=== PATIENT | male | born 1945 | race African-American/Black ===

== ENCOUNTER 2016-07-22 08:23 | Inpatient (IN) | payer MEDICARE ==
[~2016-07-22] VITALS: Ht 177.8 cm; Wt 62.6 kg
[~2016-07-22 08:23] MED LIST: ALBU18HF2 IH; LEVO500T15 PO; P50 PO
[2016-07-22] MEDS ORDERED: METHYLPREDNISOLONE SOD SUCC 125 MG/2 ML VIAL IV STA (08:51)
[2016-07-22] MEDS ORDERED: ASPIRIN 81MG TABLET PO ONE (09:00)
[2016-07-22] MEDS ORDERED: IPRATROPIUM/ALBUTEROL 0.5-3(2.5)MG/3ML NEB HHN ONE (09:00)
[2016-07-22 09:10] LABS: BG BASE EXCESS -2.9 mmol/L (-2.0-2.0); BG CARBOXYHEMOGLOBIN 2.4 % (0.5-1.5); BG FRACTION INSPIRED OXYGEN 32; BG HCO3 ACT 22.6 mmol/L (22.0-26.0); BG METHEMOGLOBIN 0.3 % (0.0-1.5); BG OXYGEN SATURATION 89.7 % (92.0-98.5); BG OXYHEMOGLOBIN 87.3 % (94.0-97.0); BG PCO2 41.8 mmHg (35.0-45.0); BG PO2 61.1 mmHg (75.0-100.0); BG SAMPLE SITE RIGHT BRACHIAL; BG TOTAL HEMOGLOBIN 14.6 g/dL (12.0-18.0); BG VENT MODE NASAL CANNULA
[2016-07-22 09:10] LABS: BASOPHILS % 1.1 % (0.0-2.0); EOSINOPHILS % 5.4 % (0.0-5.0); HEMATOCRIT. 43.8 % (42.0-52.0); HEMOGLOBIN. 14.3 g/dL (14.0-18.0); LYMPHOCYTES % 26.8 % (20.0-50.0); MEAN CORPUSCULAR HEMOGLOBIN 28.2 pg (28.0-32.0); MEAN CORPUSCULAR VOLUME 86.7 fL (80.0-94.0); MEAN PLATELET VOLUME 8.9 fl (7.4-10.4); MONOCYTES % 7.6 % (2.0-8.0); NEUTROPHILS % 59.1 % (40.0-76.0); PLATELET 230 x1000/uL (130-400); RED BLOOD CELL COUNT 5.05 mill/uL (4.7-6.1); RED CELL DISTRIBUTION WIDTH 13.5 % (11.6-14.6)
[2016-07-22 09:19] LABS: CHLORIDE 107 mEq/L (98-107); PARTIAL THROMBOPLASTIN TIME 27.9 sec (24.0-34.0); PROTHROMBIN TIME 10.3 sec
[2016-07-22 09:28] LABS: CARBON DIOXIDE 31 mEq/L (21-32)
[2016-07-22 09:31] LABS: TROPONIN I 0.02 ng/mL (0.00-0.04)
[2016-07-22] MEDS ORDERED: LIDOCAINE HCL 1% 20ML VIAL (Pyxis) INJ ONE (09:38)
[2016-07-22] MEDS ORDERED: PROPOFOL 200MG/20ML VIAL IV ONE (09:38)
[2016-07-22 11:14] LABS: CLARITY URINE CLEAR (CLEAR); COLOR URINE YELLOW (YELLOW); GLUCOSE URINE NEGATIVE (NEGATIVE); KETONES URINE NEGATIVE (NEGATIVE); LEUKOCYTE ESTERASE URINE 1+ (NEGATIVE); NITRITE URINE NEGATIVE (NEGATIVE); OCCULT BLOOD URINE NEGATIVE (NEGATIVE); PH URINE 5.5 (4.5-8.0); PROTEIN URINE NEGATIVE (NEGATIVE); SPECIFIC GRAVITY URINE 1.024 (1.005-1.030); UROBILINOGEN URINE 0.2 E.U./dL (0.2-1.0)
[2016-07-22 12:22] VITALS: BP 134/83
[2016-07-22] MEDS ORDERED: ONDANSETRON HCL 4MG/2ML VIAL IV PRN (14:15)
[2016-07-22] MEDS ORDERED: MAGNESIUM/ALUMINUM HYDROXIDE/SIMETHICONE 30ML UDC PO PRN (14:15)
[2016-07-22] MEDS ORDERED: ACETAMINOPHEN 325MG TABLET PO PRN (14:15)
[2016-07-22] MEDS ORDERED: ACETAMINOPHEN 650MG SUPP PR PRN (14:15)
[2016-07-22] MEDS ORDERED: DIPHENHYDRAMINE 50MG/ML VIAL IV PRN (14:15)
[2016-07-22] MEDS ORDERED: ACETAMINOPHEN 650MG/20.3ML UDC GT PRN (14:15)
[2016-07-22] MEDS ORDERED: NA PHOS,M-B/NA PHOS,DI-BA ENEMA 118ML PR PRN (14:15)
[2016-07-22] MEDS ORDERED: DOCUSATE SODIUM 100MG CAPSULE PO PRN (14:15)
[2016-07-22] MEDS ORDERED: GUAIFENESIN 200MG/10ML SUGAR FREE UDC PO PRN (14:15)
[2016-07-22] MEDS ORDERED: HYDROCODONE/ACETAMINOPHEN 5/325MG TABLET PO PRN (14:15)
[2016-07-22] MEDS ORDERED: IPRATROPIUM/ALBUTEROL 0.5-3(2.5)MG/3ML NEB INH PRN (14:15)
[2016-07-22] MEDS ORDERED: CLONIDINE 0.1MG TABLET PO PRN (14:15)
[2016-07-22 16:00] VITALS: BP 125/76
[2016-07-22] MEDS: IPRATROPIUM/ALBUTEROL 0.5-3(2.5)MG/3ML NEB INH SCH ×2 (16:07→20:30)
[2016-07-22] MEDS: METHYLPREDNISOLONE SOD SUCC 125 MG/2 ML VIAL IV SCH (18:39)
[2016-07-22 20:00] VITALS: BP 121/103
[2016-07-22] MEDS: BUDESONIDE 0.5MG/2ML NEB HHN SCH (20:30)
[2016-07-22] MEDS: SODIUM CHLORIDE 0.9% INJ 3ML FLUSH IVF SCH (21:15)
[2016-07-22 21:51] LABS: *AMPHETAMINES SCREEN URINE NEGATIVE (NEGATIVE); *BARBITURATES SCREEN URINE NEGATIVE (NEGATIVE); *BENZODIAZEPINES SCREEN URINE NEGATIVE (NEGATIVE); *COCAINE SCREEN URINE PRESUMTIVE POSITIVE (NEGATIVE); CANNABINOID URINE SCREEN NEGATIVE (NEGATIVE); METHADONE URINE SCREEN NEGATIVE (NEGATIVE); OPIATES URINE SCREEN NEGATIVE (NEGATIVE); PHENCYCLIDINE URINE SCREEN NEGATIVE (NEGATIVE)
[2016-07-22] MEDS: SODIUM CHLORIDE 0.9% 1,000 ML IV SCH (23:59)
[2016-07-23] VITALS: BP 107/73
[2016-07-23] MEDS: CEFTRIAXONE 1 G PREMIX 50 ML IV SCH (01:08)
[2016-07-23] MEDS: IPRATROPIUM/ALBUTEROL 0.5-3(2.5)MG/3ML NEB INH SCH ×4 (02:11→20:46)
[2016-07-23 04:00] VITALS: BP 106/60
[2016-07-23] MEDS: SODIUM CHLORIDE 0.9% INJ 3ML FLUSH IVF SCH ×3 (05:22→21:53)
[2016-07-23] MEDS: METHYLPREDNISOLONE SOD SUCC 125 MG/2 ML VIAL IV SCH ×4 (05:22→18:51)
[2016-07-23 07:03] LABS: HEMATOCRIT. 39.5 % (42.0-52.0); HEMOGLOBIN. 12.9 g/dL (14.0-18.0); MEAN CORPUSCULAR HEMOGLOBIN 28.3 pg (28.0-32.0); MEAN CORPUSCULAR VOLUME 86.5 fL (80.0-94.0); MEAN PLATELET VOLUME 9.7 fl (7.4-10.4); PLATELET 205 x1000/uL (130-400); RED BLOOD CELL COUNT 4.57 mill/uL (4.7-6.1)
[2016-07-23 07:35] LABS: CARBON DIOXIDE 25 mEq/L (21-32); CHLORIDE 105 mEq/L (98-107); HDL CHOLESTEROL 73 mg/dL (40-59); LDL CHOLESTEROL 73 mg/dL (5-100)
[2016-07-23 08:00] VITALS: BP 118/73
[2016-07-23] MEDS: BUDESONIDE 0.5MG/2ML NEB HHN SCH ×2 (08:58→20:45)
[2016-07-23 12:00] VITALS: BP 112/62
[2016-07-23 13:47] LABS: PLATELET ESTIMATE NORMAL
[2016-07-23 16:00] VITALS: BP 125/72
[2016-07-23] MEDS: SODIUM CHLORIDE 0.9% 1,000 ML IV SCH (16:03)
[2016-07-23 20:00] VITALS: BP 132/71
[2016-07-24] VITALS: BP 126/70
[2016-07-24] MEDS: CEFTRIAXONE 1 G PREMIX 50 ML IV SCH (00:16)
[2016-07-24] MEDS: METHYLPREDNISOLONE SOD SUCC 125 MG/2 ML VIAL IV SCH ×2 (00:16→05:47)
[2016-07-24] MEDS: IPRATROPIUM/ALBUTEROL 0.5-3(2.5)MG/3ML NEB INH SCH ×2 (01:25→09:06)
[2016-07-24 04:00] VITALS: BP 122/82
[2016-07-24] MEDS: SODIUM CHLORIDE 0.9% INJ 3ML FLUSH IVF SCH (05:47)
[2016-07-24 08:00] VITALS: BP 119/77
[2016-07-24] MEDS: BUDESONIDE 0.5MG/2ML NEB HHN SCH (09:06)
[2016-07-24] MEDS: SODIUM CHLORIDE 0.9% 1,000 ML IV SCH (09:38)
[2016-07-24 12:00] VITALS: BP 117/83
[2016-07-24 13:09] VITALS: BP 117/83
== END 2016-07-24 13:10 | disposition home or self-care (01) | DRG 682 ==
LOC: ER 08:24 → 5WST 11:04 → EDBEDREQ 11:16 → ENRESERV 11:22
PROVIDERS: ADMIT Family Medicine; ATTEND Family Medicine
DX: N17.9 Acute kidney failure, unspecified (principal); J96.01 Acute respiratory failure with hypoxia; J44.1 Chronic obstructive pulmonary disease with (acute) exacerbation; N39.0 Urinary tract infection, site not specified; F14.90 Cocaine use, unspecified, uncomplicated; F17.210 Nicotine dependence, cigarettes, uncomplicated
CPT/HCPCS: 36415; 36600; 71010; 80053; 80061; 80305; 81001; 82375; 82805; 83880; 84484; 85025; 85610; 85730; 93005; 93970; 94640; 94664; 96374; 99285; J0696; J2704; J2930; J3490; J7030; J7620; J7626

== ENCOUNTER 2016-10-07 12:49 | Inpatient (IN) | payer MEDICARE ==
[~2016-10-07] VITALS: Ht 172.7 cm; Wt 56.3 kg
[~2016-10-07 12:49] MED LIST changes: -LEVO500T15 PO; +LEVO500T2 PO
[2016-10-07] MEDS ORDERED: MAGNESIUM 2 G PREMIX 50 ML IV STA (13:09)
[2016-10-07] MEDS ORDERED: METHYLPREDNISOLONE SOD SUCC 125 MG/2 ML VIAL IV STA (13:09)
[2016-10-07] MEDS ORDERED: ALBUTEROL (0.083%) 2.5MG/3ML NEB HHN STA (13:09)
[2016-10-07] MEDS ORDERED: IPRATROPIUM BROMIDE (0.02%) 0.5MG/2.5ML NEB HHN STA (13:09)
[2016-10-07 14:09] LABS: BASOPHILS % 0.8 % (0.0-2.0); EOSINOPHILS % 2.2 % (0.0-5.0); HEMATOCRIT. 44.5 % (42.0-52.0); HEMOGLOBIN. 14.4 g/dL (14.0-18.0); LYMPHOCYTES % 25.1 % (20.0-50.0); MEAN CORPUSCULAR HEMOGLOBIN 28.5 pg (28.0-32.0); MEAN CORPUSCULAR VOLUME 87.7 fL (80.0-94.0); MEAN PLATELET VOLUME 9.3 fl (7.4-10.4); MONOCYTES % 9.1 % (2.0-8.0); NEUTROPHILS % 62.8 % (40.0-76.0); PLATELET 248 x1000/uL (130-400); RED BLOOD CELL COUNT 5.07 mill/uL (4.7-6.1); RED CELL DISTRIBUTION WIDTH 13.4 % (11.6-14.6)
[2016-10-07 14:11] LABS: PARTIAL THROMBOPLASTIN TIME 29.2 sec (23.4-31.0); PROTHROMBIN TIME 10.8 sec (9.4-11.6)
[2016-10-07 14:19] LABS: CARBON DIOXIDE 27 mEq/L (21-32); CHLORIDE 105 mEq/L (98-107); TROPONIN I < 0.02 ng/mL (0.00-0.04)
[2016-10-07] MEDS ORDERED: FUROSEMIDE 20MG/2ML VIAL IVP ONE (15:00)
[2016-10-07] MEDS ORDERED: LEVOFLOXACIN 500MG PREMIX 100 ML IV SCH (15:15)
[2016-10-07] MEDS ORDERED: ONDANSETRON HCL 4MG/2ML VIAL IV PRN (15:15)
[2016-10-07] MEDS ORDERED: ACETAMINOPHEN 325MG TABLET PO PRN (15:15)
[2016-10-07] MEDS ORDERED: METHYLPREDNISOLONE SOD SUCC 40 MG/ML VIAL IV SCH (15:15)
[2016-10-07] MEDS ORDERED: LEVOFLOXACIN 500MG PREMIX 100 ML IV NR (16:50)
[2016-10-07] MEDS ORDERED: TEMAZEPAM 15MG CAPSULE PO PRN (21:00)
[2016-10-07 21:14] LABS: CLARITY URINE CLEAR (CLEAR); COLOR URINE YELLOW (YELLOW); GLUCOSE URINE NEGATIVE (NEGATIVE); KETONES URINE NEGATIVE (NEGATIVE); LEUKOCYTE ESTERASE URINE NEGATIVE (NEGATIVE); NITRITE URINE NEGATIVE (NEGATIVE); OCCULT BLOOD URINE NEGATIVE (NEGATIVE); PROTEIN URINE 1+ (NEGATIVE); SPECIFIC GRAVITY URINE 1.027 (1.005-1.030)
[2016-10-07 21:30] VITALS: BP 119/64
[2016-10-07 22:00] VITALS: BP 119/64
[2016-10-07] MEDS ORDERED: PNEUMOCOCCAL 23-VAL P-SAC VAC 0.5 ML IM ONE (22:30)
[2016-10-07] MEDS: METHYLPREDNISOLONE SOD SUCC 40 MG/ML VIAL IV SCH (22:50)
[2016-10-07 23:27] LABS: CREATINE KINASE MB FRACTION 3.3 ng/mL (0.5-3.6); TROPONIN I < 0.02 ng/mL (0.00-0.04)
[2016-10-08] MEDS ORDERED: DEXTROSE 50% WATER 50ML SYRINGE IV PRN (02:00)
[2016-10-08] MEDS ORDERED: PNEUMOCOCCAL 23-VAL P-SAC VAC 0.5 ML IM ONE (06:00)
[2016-10-08] MEDS: BLOOD SUGAR DIAGNOSTIC STRIP TEST SCH ×4 (06:10→20:31)
[2016-10-08 06:15] LABS: BASOPHILS % 0.3 % (0.0-2.0); HEMATOCRIT. 38.8 % (42.0-52.0); HEMOGLOBIN. 12.7 g/dL (14.0-18.0); LYMPHOCYTES % 10.3 % (20.0-50.0); MEAN CORPUSCULAR HEMOGLOBIN 28.4 pg (28.0-32.0); MEAN CORPUSCULAR VOLUME 86.9 fL (80.0-94.0); MEAN PLATELET VOLUME 9.3 fl (7.4-10.4); MONOCYTES % 4.4 % (2.0-8.0); PLATELET 205 x1000/uL (130-400); RED BLOOD CELL COUNT 4.47 mill/uL (4.7-6.1); RED CELL DISTRIBUTION WIDTH 13.2 % (11.6-14.6)
[2016-10-08 06:34] LABS: CARBON DIOXIDE 27 mEq/L (21-32); CHLORIDE 107 mEq/L (98-107); CREATINE KINASE MB FRACTION 3.2 ng/mL (0.5-3.6); TROPONIN I < 0.02 ng/mL (0.00-0.04)
[2016-10-08] MEDS: METHYLPREDNISOLONE SOD SUCC 40 MG/ML VIAL IV SCH ×3 (06:39→21:56)
[2016-10-08] MEDS: INSULIN LISPRO 100 UNITS/ML SUBCUT SCH ×4 (06:52→20:31)
[2016-10-08 08:00] VITALS: BP 128/67
[2016-10-08 08:15] LABS: BG BASE EXCESS -1.4 mmol/L (-2.0-2.0); BG CARBOXYHEMOGLOBIN 1.6 % (0.5-1.5); BG DEOXYHEMOGLOBIN 4.2 % (0.0-5.0); BG FRACTION INSPIRED OXYGEN 28; BG HCO3 ACT 24.5 mmol/L (22.0-26.0); BG METHEMOGLOBIN 0.1 % (0.0-1.5); BG OXYGEN SATURATION 95.7 % (92.0-98.5); BG OXYHEMOGLOBIN 94.1 % (94.0-97.0); BG PCO2 45.8 mmHg (35.0-45.0); BG PH 7.347 (7.350-7.450); BG PO2 80.1 mmHg (75.0-100.0); BG SAMPLE SITE RIGHT BRACHIAL; BG TOTAL HEMOGLOBIN 13.9 g/dL (12.0-18.0); BG VENT MODE NASAL CANNULA
[2016-10-08] MEDS: PANTOPRAZOLE SODIUM 40 MG/VIAL IV SCH (09:34)
[2016-10-08] MEDS ORDERED: IPRATROPIUM/ALBUTEROL 0.5-3(2.5)MG/3ML NEB HHN PRN (09:45)
[2016-10-08] MEDS: IPRATROPIUM/ALBUTEROL 0.5-3(2.5)MG/3ML NEB HHN SCH ×4 (10:35→20:23)
[2016-10-08 12:00] VITALS: BP 96/60
[2016-10-08] MEDS: NICOTINE 14MG PATCH TD SCH (12:15)
[2016-10-08 13:38] LABS: *AMPHETAMINES SCREEN URINE NEGATIVE (NEGATIVE); *BARBITURATES SCREEN URINE NEGATIVE (NEGATIVE); *BENZODIAZEPINES SCREEN URINE NEGATIVE (NEGATIVE); *COCAINE SCREEN URINE PRESUMTIVE POSITIVE (NEGATIVE); CANNABINOID URINE SCREEN PRESUMTIVE POSITIVE (NEGATIVE); METHADONE URINE SCREEN NEGATIVE (NEGATIVE); OPIATES URINE SCREEN NEGATIVE (NEGATIVE); PHENCYCLIDINE URINE SCREEN NEGATIVE (NEGATIVE)
[2016-10-08] MEDS: AZITHROMYCIN 250 MG TABLET PO SCH (14:25)
[2016-10-08 16:00] VITALS: BP 130/75
[2016-10-08] MEDS: MONTELUKAST SODIUM 10MG TABLET PO SCH (17:56)
[2016-10-08] MEDS: ENOXAPARIN 40MG/0.4ML SYR SUBCUT SCH (17:56)
[2016-10-08] MEDS: LEVOFLOXACIN 250MG PREMIX 50 ML IV SCH (17:57)
[2016-10-08 20:00] VITALS: BP 106/61
[2016-10-09] VITALS: BP 121/73
[2016-10-09] MEDS: IPRATROPIUM/ALBUTEROL 0.5-3(2.5)MG/3ML NEB HHN SCH ×6 (00:31→20:53)
[2016-10-09 04:00] VITALS: BP 121/70
[2016-10-09] MEDS: METHYLPREDNISOLONE SOD SUCC 40 MG/ML VIAL IV SCH ×3 (05:06→21:41)
[2016-10-09] MEDS: BLOOD SUGAR DIAGNOSTIC STRIP TEST SCH ×4 (06:16→21:00)
[2016-10-09] MEDS: INSULIN LISPRO 100 UNITS/ML SUBCUT SCH ×4 (06:16→21:00)
[2016-10-09 08:00] VITALS: BP 108/57
[2016-10-09] MEDS: PANTOPRAZOLE SODIUM 40 MG/VIAL IV SCH (08:51)
[2016-10-09] MEDS: AZITHROMYCIN 250 MG TABLET PO SCH (08:51)
[2016-10-09] MEDS: NICOTINE 14MG PATCH TD SCH (08:52)
[2016-10-09] MEDS: ENOXAPARIN 40MG/0.4ML SYR SUBCUT SCH (08:52)
[2016-10-09 12:00] VITALS: BP 118/71
[2016-10-09 16:00] VITALS: BP 125/78
[2016-10-09] MEDS: MONTELUKAST SODIUM 10MG TABLET PO SCH (18:47)
[2016-10-09] MEDS: LEVOFLOXACIN 250MG PREMIX 50 ML IV SCH (18:47)
[2016-10-09 20:00] VITALS: BP 123/65
[2016-10-10] VITALS: BP 117/69
[2016-10-10] MEDS: IPRATROPIUM/ALBUTEROL 0.5-3(2.5)MG/3ML NEB HHN SCH ×6 (00:22→21:23)
[2016-10-10 04:00] VITALS: BP 139/82
[2016-10-10] MEDS: METHYLPREDNISOLONE SOD SUCC 40 MG/ML VIAL IV SCH (05:09)
[2016-10-10] MEDS: BLOOD SUGAR DIAGNOSTIC STRIP TEST SCH ×4 (05:54→20:17)
[2016-10-10] MEDS: INSULIN LISPRO 100 UNITS/ML SUBCUT SCH ×4 (06:19→20:17)
[2016-10-10 06:56] LABS: HEMATOCRIT. 39.4 % (42.0-52.0); HEMOGLOBIN. 12.9 g/dL (14.0-18.0); MEAN CORPUSCULAR HEMOGLOBIN 28.4 pg (28.0-32.0); MEAN CORPUSCULAR VOLUME 86.6 fL (80.0-94.0); MEAN PLATELET VOLUME 10.7 fl (7.4-10.4); PLATELET 216 x1000/uL (130-400); RED BLOOD CELL COUNT 4.55 mill/uL (4.7-6.1); RED CELL DISTRIBUTION WIDTH 13.4 % (11.6-14.6)
[2016-10-10 08:00] VITALS: BP 130/79
[2016-10-10] MEDS: AZITHROMYCIN 250 MG TABLET PO SCH (09:03)
[2016-10-10] MEDS: PANTOPRAZOLE SODIUM 40 MG/VIAL IV SCH (09:03)
[2016-10-10] MEDS: NICOTINE 14MG PATCH TD SCH (09:04)
[2016-10-10] MEDS: ENOXAPARIN 40MG/0.4ML SYR SUBCUT SCH (09:04)
[2016-10-10 14:00] LABS: PLATELET ESTIMATE NORMAL
[2016-10-10 16:28] VITALS: BP 110/65
[2016-10-10] MEDS: PREDNISONE 20MG TABLET PO SCH (17:53)
[2016-10-10] MEDS: MONTELUKAST SODIUM 10MG TABLET PO SCH (17:53)
[2016-10-10] MEDS: LEVOFLOXACIN 250MG PREMIX 50 ML IV SCH (17:55)
[2016-10-10 20:00] VITALS: BP 160/46
[2016-10-10] MEDS: BUDESONIDE 0.5MG/2ML NEB HHN SCH (21:23)
[2016-10-11] VITALS: BP 110/61
[2016-10-11] MEDS: IPRATROPIUM/ALBUTEROL 0.5-3(2.5)MG/3ML NEB HHN SCH ×4 (00:52→12:32)
[2016-10-11 04:00] VITALS: BP 114/69
[2016-10-11] MEDS: INSULIN LISPRO 100 UNITS/ML SUBCUT SCH ×2 (06:22→12:14)
[2016-10-11] MEDS: BLOOD SUGAR DIAGNOSTIC STRIP TEST SCH ×2 (06:22→11:45)
[2016-10-11 07:30] LABS: HEMOGLOBIN. 12.8 g/dL (14.0-18.0); MEAN CORPUSCULAR HEMOGLOBIN 28.3 pg (28.0-32.0); MEAN CORPUSCULAR VOLUME 86.2 fL (80.0-94.0); MEAN PLATELET VOLUME 9.8 fl (7.4-10.4); PLATELET 208 x1000/uL (130-400); RED BLOOD CELL COUNT 4.53 mill/uL (4.7-6.1); RED CELL DISTRIBUTION WIDTH 13.5 % (11.6-14.6)
[2016-10-11] MEDS: PANTOPRAZOLE SODIUM 40 MG/VIAL IV SCH (08:45)
[2016-10-11] MEDS: NICOTINE 14MG PATCH TD SCH (08:45)
[2016-10-11] MEDS: AZITHROMYCIN 250 MG TABLET PO SCH (08:45)
[2016-10-11] MEDS: PREDNISONE 20MG TABLET PO SCH (08:45)
[2016-10-11 08:47] VITALS: BP 108/61
[2016-10-11] MEDS: ENOXAPARIN 40MG/0.4ML SYR SUBCUT SCH (08:47)
[2016-10-11] MEDS: BUDESONIDE 0.5MG/2ML NEB HHN SCH (09:10)
[2016-10-11] MEDS ORDERED: LEVO500T2 PO (10:40)
[2016-10-11 10:59] VITALS: BP 108/61
[2016-10-11 12:00] VITALS: BP 122/77
[2016-10-11] MEDS ORDERED: ALBUTEROL 6.7GM HFA INHALER INH SCH (14:30)
[2016-10-11 16:53] LABS: PLATELET ESTIMATE NORMAL
[2016-10-12] MEDS ORDERED: PANTOPRAZOLE 40MG DR TABLET PO SCH (06:45)
[2016-10-12] MEDS ORDERED: LEVOFLOXACIN 500MG TABLET PO SCH (09:00)
[2016-10-12] MEDS ORDERED: PREDNISONE 20MG TABLET PO SCH (09:00)
[2016-10-12] MEDS ORDERED: PREDNISONE 50 MG PO SCH (09:00)
== END 2016-10-11 14:50 | disposition home or self-care (01) | DRG 291 ==
LOC: ER 12:53 → 5WST 14:49 → EDBEDREQ 14:51 → ENRESERV 19:58
PROVIDERS: ADMIT Internal Medicine Geriatric Medicine; ATTEND Internal Medicine Geriatric Medicine
DX: I13.0 Hypertensive heart and chronic kidney disease with heart failure and stage 1 through stage 4 chronic kidney disease, or unspecified chronic kidney disease (principal); I50.31 Acute diastolic (congestive) heart failure; J96.00 Acute respiratory failure, unspecified whether with hypoxia or hypercapnia; N17.0 Acute kidney failure with tubular necrosis; J44.1 Chronic obstructive pulmonary disease with (acute) exacerbation; J98.11 Atelectasis; E11.22 Type 2 diabetes mellitus with diabetic chronic kidney disease; E11.65 Type 2 diabetes mellitus with hyperglycemia; N18.9 Chronic kidney disease, unspecified; F14.10 Cocaine abuse, uncomplicated; F17.210 Nicotine dependence, cigarettes, uncomplicated; I35.1 Nonrheumatic aortic (valve) insufficiency; F12.10 Cannabis abuse, uncomplicated; M79.604 Pain in right leg; M79.605 Pain in left leg; Z79.2 Long term (current) use of antibiotics; Z79.51 Long term (current) use of inhaled steroids; Z79.899 Other long term (current) drug therapy; Z71.6 Tobacco abuse counseling
CPT/HCPCS: 36415; 36600; 71010; 80048; 80053; 80305; 81001; 82270; 82375; 82553; 82805; 82962; 83605; 83690; 83880; 84484; 85025; 85610; 85730; 87040; 87086; 90732; 93005; 93306; 93970; 94640; 94664; 96365; 96367; 96375; 99291; C9113; J1650; J1940; J1956; J2920; J2930; J3475; J7030; J7060; J7512; J7611; J7620; J7626

== ENCOUNTER 2019-02-03 13:53 | Inpatient (IN) | payer MEDICARE, OTHER ==
[~2019-02-03] VITALS: Ht 172.7 cm; Wt 60.3 kg
[~2019-02-03 13:53] MED LIST changes: +ATROV IH; +BUDE6.9H INH; +FURO20TA4 MT; -LEVO500T2 PO; +P20 MT; -P50 PO
[2019-02-03] MEDS ORDERED: SODIUM CHLORIDE 0.9% 1,000 ML IV ONE (14:17)
[2019-02-03] MEDS ORDERED: ALBUTEROL (0.083%) 2.5MG/3ML NEB HHN STA (14:17)
[2019-02-03] MEDS ORDERED: METHYLPREDNISOLONE SOD SUCC 125 MG/2 ML VIAL IV STA (14:17)
[2019-02-03] MEDS ORDERED: IPRATROPIUM BROMIDE (0.02%) 0.5MG/2.5ML NEB HHN STA (14:17)
[2019-02-03 14:40] LABS: HEMOGLOBIN. 12.1 g/dL (14.0-18.0); MEAN CORPUSCULAR HEMOGLOBIN 29.3 pg (28.0-32.0); MEAN CORPUSCULAR VOLUME 91.9 fL (80.0-94.0); MEAN PLATELET VOLUME 9.3 fl (7.4-10.4); PLATELET 175 x1000/uL (130-400); RED BLOOD CELL COUNT 4.13 mill/uL (4.7-6.1); RED CELL DISTRIBUTION WIDTH 15.8 % (11.6-14.6)
[2019-02-03 14:46] LABS: CHLORIDE 105 mEq/L (98-107)
[2019-02-03 14:51] LABS: ETHANOL BLOOD < 10 mg/dL
[2019-02-03 14:58] LABS: PLATELET ESTIMATE NORMAL
[2019-02-03 15:44] LABS: BG BASE EXCESS 6.6 mmol/L (-2.0-2.0); BG CARBOXYHEMOGLOBIN 1.3 % (0.5-1.5); BG DEOXYHEMOGLOBIN 4.9 % (0.0-5.0); BG FRACTION INSPIRED OXYGEN 28; BG HCO3 ACT 33.5 mmol/L (22.0-26.0); BG METHEMOGLOBIN 0.1 % (0.0-1.5); BG OXYHEMOGLOBIN 93.7 % (94.0-97.0); BG PCO2 59.3 mmHg (35.0-45.0); BG PO2 73.6 mmHg (75.0-100.0); BG SAMPLE SITE RIGHT RADIAL; BG VENT MODE NASAL CANNULA
[2019-02-03 17:10] LABS: *AMPHETAMINES SCREEN URINE NEGATIVE (NEGATIVE); *BARBITURATES SCREEN URINE NEGATIVE (NEGATIVE); *BENZODIAZEPINES SCREEN URINE NEGATIVE (NEGATIVE); *COCAINE SCREEN URINE NEGATIVE (NEGATIVE); METHADONE URINE SCREEN NEGATIVE (NEGATIVE); OPIATES URINE SCREEN NEGATIVE (NEGATIVE)
[2019-02-03 17:11] LABS: CANNABINOID URINE SCREEN NEGATIVE (NEGATIVE); PHENCYCLIDINE URINE SCREEN NEGATIVE (NEGATIVE)
[2019-02-03] MEDS ORDERED: ACETAMINOPHEN 325MG TABLET PO PRN (17:45)
[2019-02-03] MEDS ORDERED: ONDANSETRON HCL 4MG/2ML INJ IV PRN (17:45)
[2019-02-03] MEDS ORDERED: CALCIUM CHLORIDE 1,000 MG in DEXT 5% WATER 90 ML IV ONE (17:45)
[2019-02-03] MEDS ORDERED: SODIUM POLYSTYRENE SULFONATE 15 G/60 ML BOT PO ONE (17:45)
[2019-02-03] MEDS ORDERED: GUAIFENESIN 200MG/10ML SUGAR FREE UDC PO PRN (17:45)
[2019-02-03] MEDS ORDERED: METHYLPREDNISOLONE SOD SUCC 125 MG/2 ML VIAL IV SCH (18:30)
[2019-02-03] MEDS ORDERED: DOXYCYCLINE 100 MG in DEXT 5% WATER 100 ML IV SCH (19:00)
[2019-02-03] MEDS ORDERED: IPRATROPIUM/ALBUTEROL 0.5-3(2.5)MG/3ML NEB NEB SCH (20:00)
[2019-02-03] MEDS: METHYLPREDNISOLONE SOD SUCC 125 MG/2 ML VIAL IV SCH (20:03)
[2019-02-03 21:18] VITALS: BP 111/67
[2019-02-03] MEDS: HEPARIN 5000 UNITS/ML VIAL SUBCUT SCH (23:48)
[2019-02-04 00:08] VITALS: BP 111/59
[2019-02-04] MEDS: IPRATROPIUM/ALBUTEROL 0.5-3(2.5)MG/3ML NEB NEB SCH ×4 (01:01→21:36)
[2019-02-04] MEDS: METHYLPREDNISOLONE SOD SUCC 125 MG/2 ML VIAL IV SCH ×3 (03:29→15:05)
[2019-02-04 04:00] VITALS: BP 102/58
[2019-02-04 06:08] LABS: HEMOGLOBIN. 10.4 g/dL (14.0-18.0); MEAN CORPUSCULAR HEMOGLOBIN 28.9 pg (28.0-32.0); MEAN CORPUSCULAR VOLUME 91.7 fL (80.0-94.0); MEAN PLATELET VOLUME 9.6 fl (7.4-10.4); PLATELET 161 x1000/uL (130-400); RED CELL DISTRIBUTION WIDTH 15.6 % (11.6-14.6)
[2019-02-04 06:22] LABS: CHLORIDE 103 mEq/L (98-107)
[2019-02-04 08:00] VITALS: BP 105/69
[2019-02-04] MEDS: DOXYCYCLINE 100 MG in DEXT 5% WATER 100 ML IV SCH (09:42)
[2019-02-04] MEDS: HEPARIN 5000 UNITS/ML VIAL SUBCUT SCH ×2 (09:43→21:34)
[2019-02-04] MEDS: FUROSEMIDE 20MG TABLET PO SCH (15:04)
[2019-02-04 16:00] VITALS: BP_SYST 109; BP_SYST 116; BP_DIAS 65; BP_DIAS 68
[2019-02-04 20:36] VITALS: BP 109/63
[2019-02-04] MEDS: METHYLPREDNISOLONE SOD SUCC 40 MG/ML VIAL IV SCH (21:34)
[2019-02-05 00:42] VITALS: BP 108/57
[2019-02-05] MEDS: IPRATROPIUM/ALBUTEROL 0.5-3(2.5)MG/3ML NEB NEB SCH ×7 (01:05→23:43)
[2019-02-05] MEDS: DOXYCYCLINE 100 MG in DEXT 5% WATER 100 ML IV SCH ×3 (01:17→22:55)
[2019-02-05] MEDS: METHYLPREDNISOLONE SOD SUCC 40 MG/ML VIAL IV SCH ×3 (02:30→15:35)
[2019-02-05 04:00] VITALS: BP 113/67
[2019-02-05 08:17] LABS: PLATELET ESTIMATE NORMAL
[2019-02-05] MEDS: FUROSEMIDE 20MG TABLET PO SCH (10:24)
[2019-02-05] MEDS: HEPARIN 5000 UNITS/ML VIAL SUBCUT SCH ×2 (10:26→22:55)
[2019-02-05 18:00] VITALS: BP 133/69
[2019-02-05 20:49] VITALS: BP 129/83
[2019-02-05] MEDS ORDERED: METHYLPREDNISOLONE SOD SUCC 40 MG/ML VIAL IV SCH (21:00)
[2019-02-06 00:41] VITALS: BP 109/66
[2019-02-06 04:30] VITALS: BP 101/72
[2019-02-06] MEDS: IPRATROPIUM/ALBUTEROL 0.5-3(2.5)MG/3ML NEB NEB SCH ×3 (05:00→13:18)
[2019-02-06 07:56] VITALS: BP 99/63
[2019-02-06] MEDS ORDERED: PREDNISONE 20MG TABLET PO SCH (09:00)
[2019-02-06] MEDS: FUROSEMIDE 20MG TABLET PO SCH (09:58)
[2019-02-06] MEDS: DOXYCYCLINE 100 MG in DEXT 5% WATER 100 ML IV SCH ×2 (09:58→10:02)
[2019-02-06] MEDS: HEPARIN 5000 UNITS/ML VIAL SUBCUT SCH ×2 (09:59→22:31)
[2019-02-06 11:53] VITALS: BP 121/76
[2019-02-06] MEDS: LORAZEPAM 0.5MG TABLET PO PRN ×2 (12:11→22:31)
[2019-02-06] MEDS ORDERED: DOXY150T5 MT (13:16)
[2019-02-06] MEDS ORDERED: P20 MT (13:16)
[2019-02-06] MEDS ORDERED: DOXYCYCLINE HYCLATE 100MG CAPSULE PO ONE (15:00)
[2019-02-06] MEDS ORDERED: PREDNISONE 20MG TABLET PO NR (15:15)
[2019-02-06] MEDS: DOXYCYCLINE HYCLATE 100MG CAPSULE PO SCH (16:02)
[2019-02-06 16:21] VITALS: BP 99/61
[2019-02-06] MEDS: IPRATROPIUM BROMIDE (0.02%) 0.5MG/2.5ML NEB HHN SCH ×2 (17:20→21:23)
[2019-02-06 20:35] VITALS: BP 110/59
[2019-02-07] VITALS (8 sets, daily range): BP systolic 99–114; BP diastolic 59–78
[2019-02-07] MEDS: IPRATROPIUM BROMIDE (0.02%) 0.5MG/2.5ML NEB HHN SCH ×5 (00:23→20:39)
[2019-02-07] MEDS: FUROSEMIDE 20MG TABLET PO SCH (08:12)
[2019-02-07] MEDS: DOXYCYCLINE HYCLATE 100MG CAPSULE PO SCH ×2 (08:12→17:39)
[2019-02-07] MEDS: HEPARIN 5000 UNITS/ML VIAL SUBCUT SCH ×2 (08:13→20:42)
[2019-02-07] MEDS ORDERED: PREDNISONE 20MG TABLET PO SCH ×3 (09:00→11:00)
[2019-02-07] MEDS ORDERED: METHYLPREDNISOLONE SOD SUCC 40 MG/ML VIAL IV SCH (09:30)
[2019-02-07 09:49] LABS: BG BASE EXCESS 3.9 mmol/L (-2.0-2.0); BG CARBOXYHEMOGLOBIN 0.8 % (0.5-1.5); BG DEOXYHEMOGLOBIN 3.7 % (0.0-5.0); BG FRACTION INSPIRED OXYGEN 32; BG HCO3 ACT 31.2 mmol/L (22.0-26.0); BG METHEMOGLOBIN 0.3 % (0.0-1.5); BG OXYGEN SATURATION 96.3 % (92.0-98.5); BG OXYHEMOGLOBIN 95.2 % (94.0-97.0); BG PCO2 59.7 mmHg (35.0-45.0); BG PH 7.336 (7.350-7.450); BG PO2 86.3 mmHg (75.0-100.0); BG SAMPLE SITE RIGHT RADIAL; BG TOTAL HEMOGLOBIN 12.5 g/dL (12.0-18.0); BG VENT MODE NASAL CANNULA
[2019-02-07] MEDS: PREDNISONE 20MG TABLET PO SCH (17:40)
[2019-02-07] MEDS: TRAZODONE HCL 50MG TABLET PO PRN (20:42)
[2019-02-08] VITALS (10 sets, daily range): BP systolic 98–118; BP diastolic 54–73
[2019-02-08] MEDS: IPRATROPIUM BROMIDE (0.02%) 0.5MG/2.5ML NEB HHN SCH ×6 (00:36→23:53)
[2019-02-08] MEDS: FUROSEMIDE 20MG TABLET PO SCH (08:17)
[2019-02-08] MEDS: DOXYCYCLINE HYCLATE 100MG CAPSULE PO SCH ×2 (08:17→17:14)
[2019-02-08] MEDS: PREDNISONE 20MG TABLET PO SCH ×2 (08:18→17:14)
[2019-02-08] MEDS: HEPARIN 5000 UNITS/ML VIAL SUBCUT SCH ×2 (08:18→20:58)
[2019-02-08 09:26] LABS: HEMATOCRIT. 37.8 % (42.0-52.0); HEMOGLOBIN. 11.9 g/dL (14.0-18.0); MEAN CORPUSCULAR VOLUME 92.2 fL (80.0-94.0); MEAN PLATELET VOLUME 10.7 fl (7.4-10.4); PLATELET 127 x1000/uL (130-400); RED BLOOD CELL COUNT 4.09 mill/uL (4.7-6.1); RED CELL DISTRIBUTION WIDTH 16.3 % (11.6-14.6)
[2019-02-08 09:36] LABS: CHLORIDE 103 mEq/L (98-107)
[2019-02-08 13:05] LABS: PLATELET ESTIMATE SLIGHTLY DECREASED
[2019-02-08] MEDS ORDERED: P20 PO (14:02)
[2019-02-08 18:25] LABS: BG BASE EXCESS 6.7 mmol/L (-2.0-2.0); BG CARBOXYHEMOGLOBIN 1.4 % (0.5-1.5); BG FRACTION INSPIRED OXYGEN 28; BG HCO3 ACT 34.2 mmol/L (22.0-26.0); BG METHEMOGLOBIN 0.2 % (0.0-1.5); BG OXYHEMOGLOBIN 96.4 % (94.0-97.0); BG PCO2 62.1 mmHg (35.0-45.0); BG PH 7.359 (7.350-7.450); BG PO2 101.6 mmHg (75.0-100.0); BG SAMPLE SITE RIGHT RADIAL; BG TOTAL HEMOGLOBIN 13.6 g/dL (12.0-18.0); BG VENT MODE NASAL CANNULA
[2019-02-08] MEDS: CARVEDILOL 3.125 MG TABLET PO SCH (20:57)
[2019-02-08] MEDS: TRAZODONE HCL 50MG TABLET PO PRN (20:57)
[2019-02-09] VITALS (8 sets, daily range): BP systolic 107–128; BP diastolic 74–96
[2019-02-09] MEDS: IPRATROPIUM BROMIDE (0.02%) 0.5MG/2.5ML NEB HHN SCH ×6 (03:31→23:58)
[2019-02-09] MEDS: LORAZEPAM 0.5MG TABLET PO PRN (04:33)
[2019-02-09] MEDS: PREDNISONE 20MG TABLET PO SCH ×2 (09:39→16:53)
[2019-02-09] MEDS: FUROSEMIDE 20MG TABLET PO SCH (09:40)
[2019-02-09] MEDS: DOXYCYCLINE HYCLATE 100MG CAPSULE PO SCH ×2 (09:40→16:53)
[2019-02-09] MEDS: CARVEDILOL 3.125 MG TABLET PO SCH (09:40)
[2019-02-09] MEDS: HEPARIN 5000 UNITS/ML VIAL SUBCUT SCH (09:41)
[2019-02-09] MEDS ORDERED: FUROSEMIDE 20MG/2ML VIAL IVP NR (13:45)
[2019-02-09] MEDS ORDERED: ENOXAPARIN 60MG/0.6ML SYR SUBCUT ONE (13:45)
[2019-02-09] MEDS: DILTIAZEM HCL 30MG TABLET PO SCH (14:12)
[2019-02-09 14:24] LABS: BG BASE EXCESS 5.2 mmol/L (-2.0-2.0); BG CARBOXYHEMOGLOBIN 1.2 % (0.5-1.5); BG DEOXYHEMOGLOBIN 5.3 % (0.0-5.0); BG FRACTION INSPIRED OXYGEN 24; BG HCO3 ACT 31.8 mmol/L (22.0-26.0); BG METHEMOGLOBIN 0.1 % (0.0-1.5); BG OXYGEN SATURATION 94.6 % (92.0-98.5); BG OXYHEMOGLOBIN 93.4 % (94.0-97.0); BG PCO2 55.3 mmHg (35.0-45.0); BG PH 7.378 (7.350-7.450); BG PO2 71.7 mmHg (75.0-100.0); BG SAMPLE SITE RIGHT BRACHIAL; BG TOTAL HEMOGLOBIN 13.7 g/dL (12.0-18.0); BG VENT MODE NASAL CANNULA
[2019-02-10] VITALS (11 sets, daily range): BP systolic 98–150; BP diastolic 65–85
[2019-02-10] MEDS: IPRATROPIUM BROMIDE (0.02%) 0.5MG/2.5ML NEB HHN SCH ×5 (03:42→20:48)
[2019-02-10] MEDS: DILTIAZEM HCL 30MG TABLET PO SCH ×4 (04:26→22:47)
[2019-02-10] MEDS: HEPARIN 5000 UNITS/ML VIAL SUBCUT SCH ×3 (04:28→22:46)
[2019-02-10 08:11] LABS: HEMATOCRIT. 40.3 % (42.0-52.0); HEMOGLOBIN. 12.7 g/dL (14.0-18.0); MEAN PLATELET VOLUME 9.7 fl (7.4-10.4); PLATELET 139 x1000/uL (130-400); RED BLOOD CELL COUNT 4.37 mill/uL (4.7-6.1); RED CELL DISTRIBUTION WIDTH 15.7 % (11.6-14.6)
[2019-02-10 08:51] LABS: CHLORIDE 102 mEq/L (98-107)
[2019-02-10] MEDS: DOXYCYCLINE HYCLATE 100MG CAPSULE PO SCH ×2 (09:10→16:45)
[2019-02-10] MEDS: PREDNISONE 20MG TABLET PO SCH ×2 (09:10→16:45)
[2019-02-10 11:25] LABS: PLATELET ESTIMATE NORMAL
[2019-02-10] MEDS: FUROSEMIDE 20MG/2ML VIAL IVP SCH (13:42)
[2019-02-10] MEDS ORDERED: APIXABAN 5 MG TABLET PO SCH (14:30)
[2019-02-10] MEDS ORDERED: FUROSEMIDE 40MG/4ML VIAL IVP NR (14:30)
[2019-02-10] MEDS ORDERED: IOHEXOL-350 100 ML BOTTLE ONE ×2 (15:14→17:52)
[2019-02-10] MEDS: TRAZODONE HCL 50MG TABLET PO PRN (22:46)
[2019-02-11] VITALS (12 sets, daily range): BP systolic 93–135; BP diastolic 58–89
[2019-02-11] MEDS: IPRATROPIUM BROMIDE (0.02%) 0.5MG/2.5ML NEB HHN SCH ×7 (00:35→20:53)
[2019-02-11] MEDS: LORAZEPAM 2MG/ML CPJ IV PRN ×2 (00:54→21:13)
[2019-02-11] MEDS: DILTIAZEM HCL 30MG TABLET PO SCH ×3 (05:26→21:12)
[2019-02-11 07:00] LABS: CHLORIDE 98 mEq/L (98-107)
[2019-02-11 07:09] LABS: HEMATOCRIT. 38.8 % (42.0-52.0); HEMOGLOBIN. 12.1 g/dL (14.0-18.0); MEAN CORPUSCULAR HEMOGLOBIN 28.6 pg (28.0-32.0); MEAN CORPUSCULAR VOLUME 91.6 fL (80.0-94.0); MEAN PLATELET VOLUME 9.6 fl (7.4-10.4); PLATELET 162 x1000/uL (130-400); RED BLOOD CELL COUNT 4.24 mill/uL (4.7-6.1); RED CELL DISTRIBUTION WIDTH 15.6 % (11.6-14.6)
[2019-02-11] MEDS: HEPARIN 5000 UNITS/ML VIAL SUBCUT SCH ×2 (09:13→21:10)
[2019-02-11] MEDS: DOXYCYCLINE HYCLATE 100MG CAPSULE PO SCH ×2 (09:13→18:42)
[2019-02-11] MEDS: FUROSEMIDE 20MG/2ML VIAL IVP SCH (09:13)
[2019-02-11] MEDS: PREDNISONE 20MG TABLET PO SCH ×2 (09:13→18:42)
[2019-02-11 11:44] LABS: PLATELET ESTIMATE NORMAL
[2019-02-11] MEDS: CARVEDILOL 3.125 MG TABLET PO SCH (21:13)
[2019-02-12] VITALS (11 sets, daily range): BP systolic 90–137; BP diastolic 56–80
[2019-02-12] MEDS: IPRATROPIUM BROMIDE (0.02%) 0.5MG/2.5ML NEB HHN SCH ×6 (00:01→20:37)
[2019-02-12] MEDS: DILTIAZEM HCL 30MG TABLET PO SCH ×3 (05:41→21:24)
[2019-02-12 06:23] LABS: HEMATOCRIT. 41.6 % (42.0-52.0); HEMOGLOBIN. 13.3 g/dL (14.0-18.0); MEAN CORPUSCULAR HEMOGLOBIN 29.2 pg (28.0-32.0); MEAN CORPUSCULAR VOLUME 91.7 fL (80.0-94.0); MEAN PLATELET VOLUME 9.7 fl (7.4-10.4); PLATELET 175 x1000/uL (130-400); RED BLOOD CELL COUNT 4.54 mill/uL (4.7-6.1); RED CELL DISTRIBUTION WIDTH 15.9 % (11.6-14.6)
[2019-02-12 06:59] LABS: CHLORIDE 98 mEq/L (98-107)
[2019-02-12] MEDS: CARVEDILOL 3.125 MG TABLET PO SCH (10:15)
[2019-02-12] MEDS: FUROSEMIDE 20MG/2ML VIAL IVP SCH (10:15)
[2019-02-12] MEDS: PREDNISONE 20MG TABLET PO SCH ×2 (10:15→16:46)
[2019-02-12] MEDS: HEPARIN 5000 UNITS/ML VIAL SUBCUT SCH ×2 (10:16→21:25)
[2019-02-12 14:30] LABS: NUCLEATED RED BLOOD CELLS 1 /100 WBC; PLATELET ESTIMATE NORMAL
[2019-02-12] MEDS ORDERED: CARVEDILOL 6.25 MG TABLET PO SCH (21:00)
[2019-02-17] MEDS ORDERED: APIXABAN 5 MG TABLET PO SCH (17:00)
== END 2019-02-12 21:55 | DRG 871 ==
LOC: ER 14:11 → EDBEDREQ 15:22 → ENRESERV 20:14 → 6WST 21:24 → 5EST 02-09 11:48
PROVIDERS: ADMIT Family Medicine Adult Medicine; ATTEND Family Medicine Adult Medicine
DX: A41.9 Sepsis, unspecified organism (principal); J96.01 Acute respiratory failure with hypoxia; J96.02 Acute respiratory failure with hypercapnia; J18.9 Pneumonia, unspecified organism; J44.1 Chronic obstructive pulmonary disease with (acute) exacerbation; E44.1 Mild protein-calorie malnutrition; I42.9 Cardiomyopathy, unspecified; I50.42 Chronic combined systolic (congestive) and diastolic (congestive) heart failure; I13.0 Hypertensive heart and chronic kidney disease with heart failure and stage 1 through stage 4 chronic kidney disease, or unspecified chronic kidney disease; E87.2 Acidosis; I48.92 Unspecified atrial flutter; J44.0 Chronic obstructive pulmonary disease with (acute) lower respiratory infection; K56.609 Unspecified intestinal obstruction, unspecified as to partial versus complete obstruction; I47.1 Supraventricular tachycardia; E87.5 Hyperkalemia; N18.9 Chronic kidney disease, unspecified; D64.9 Anemia, unspecified; R74.0 Nonspecific elevation of levels of transaminase and lactic acid dehydrogenase [LDH]; J20.9 Acute bronchitis, unspecified; F10.10 Alcohol abuse, uncomplicated; F14.10 Cocaine abuse, uncomplicated; F17.200 Nicotine dependence, unspecified, uncomplicated; Z79.51 Long term (current) use of inhaled steroids; Z79.899 Other long term (current) drug therapy; Z99.81 Dependence on supplemental oxygen; Z68.20 Body mass index [BMI] 20.0-20.9, adult
CPT/HCPCS: 36415; 36600; 71045; 71275; 78580; 80048; 80053; 80305; 80320; 82375; 82805; 83735; 83880; 84443; 84484; 85025; 85379; 93005; 93306; 93970; 94640; 97162; 97164; 99291; C1893; J1644; J1940; J2060; J2920; J2930; J3490; J7030; J7060; J7512; Q9967; G0480

== ENCOUNTER 2019-12-26 08:27 | Inpatient (IN) | payer MEDICARE, MEDICAID ==
[~2019-12-26] VITALS: Ht 175.3 cm; Wt 59.4 kg
[~2019-12-26 08:27] MED LIST changes: +DOXY150T5 MT; -P20 MT; +P20 PO
[2019-12-26 09:11] LABS: BASOPHILS % 0.7 % (0.0-2.0); EOSINOPHILS % 6.2 % (0.0-5.0); HEMATOCRIT. 33.2 % (42.0-52.0); HEMOGLOBIN. 10.6 g/dL (14.0-18.0); LYMPHOCYTES % 17.1 % (20.0-50.0); MEAN CORPUSCULAR HEMOGLOBIN 29.4 pg (28.0-32.0); MEAN CORPUSCULAR VOLUME 91.7 fL (80.0-94.0); MEAN PLATELET VOLUME 8.5 fl (7.4-10.4); MONOCYTES % 8.4 % (2.0-8.0); NEUTROPHILS % 67.6 % (40.0-76.0); PLATELET 257 x1000/uL (130-400); RED BLOOD CELL COUNT 3.62 mill/uL (4.7-6.1); RED CELL DISTRIBUTION WIDTH 14.8 % (11.6-14.6)
[2019-12-26 09:22] LABS: CHLORIDE 108 mEq/L (98-107)
[2019-12-26] MEDS ORDERED: FUROSEMIDE 40MG/4ML VIAL IVP ONE (10:15)
[2019-12-26] MEDS ORDERED: ENALAPRIL 2.5MG/2ML VIAL 2ML IV ONE (10:15)
[2019-12-26] MEDS ORDERED: ONDANSETRON HCL 4MG/2ML INJ IV PRN (10:45)
[2019-12-26] MEDS ORDERED: MAGNESIUM/ALUMINUM HYDROXIDE/SIMETHICONE 30ML UDC PO PRN (10:45)
[2019-12-26] MEDS ORDERED: CLONIDINE 0.1MG TABLET PO PRN (10:45)
[2019-12-26] MEDS ORDERED: IPRATROPIUM/ALBUTEROL 0.5-3(2.5)MG/3ML NEB NEB PRN (10:45)
[2019-12-26] MEDS ORDERED: ACETAMINOPHEN 325MG TABLET PO PRN (10:45)
[2019-12-26] MEDS ORDERED: DOCUSATE SODIUM 100MG CAPSULE PO PRN (10:45)
[2019-12-26] MEDS ORDERED: GUAIFENESIN 200MG/10ML SUGAR FREE UDC PO PRN (10:45)
[2019-12-26] MEDS ORDERED: ENOXAPARIN 40MG/0.4ML SYR SUBCUT SCH (11:00)
[2019-12-26] MEDS ORDERED: LEVOFLOXACIN 750MG PREMIX 150ML IV NR (11:00)
[2019-12-26] MEDS: METHYLPREDNISOLONE SOD SUCC 125 MG/2 ML VIAL IV SCH ×3 (11:08→22:39)
[2019-12-26] MEDS: IPRATROPIUM/ALBUTEROL 0.5-3(2.5)MG/3ML NEB NEB SCH ×2 (11:58→20:46)
[2019-12-26] MEDS ORDERED: PHENYLEPHRINE 50 MG in DEXTROSE 5% WATER 250 ML IV PRN (12:30)
[2019-12-26 13:30] VITALS: BP 104/65
[2019-12-26 14:00] VITALS: BP 121/66
[2019-12-26 16:00] VITALS: BP 119/63
[2019-12-26 16:16] LABS: CREATINE KINASE 100 IU/L (39-308)
[2019-12-26] MEDS: ENOXAPARIN 40MG/0.4ML SYR SUBCUT SCH (16:39)
[2019-12-26 17:46] LABS: BG BASE EXCESS 2.9 mmol/L (-2.0-2.0); BG CARBOXYHEMOGLOBIN 0.9 % (0.5-1.5); BG DEOXYHEMOGLOBIN 2.8 % (0.0-5.0); BG FRACTION INSPIRED OXYGEN 40; BG HCO3 ACT 29.2 mmol/L (22.0-26.0); BG METHEMOGLOBIN 0.3 % (0.0-1.5); BG OXYGEN SATURATION 97.2 % (92.0-98.5); BG PCO2 52.1 mmHg (35.0-45.0); BG PH 7.366 (7.350-7.450); BG PO2 95.7 mmHg (75.0-100.0); BG SAMPLE SITE RIGHT RADIAL; BG TOTAL HEMOGLOBIN 12.2 g/dL (12.0-18.0); BG VENT MODE NASAL CANNULA
[2019-12-26 18:00] VITALS: BP 109/55
[2019-12-26 20:00] VITALS: BP 113/63
[2019-12-26 22:00] VITALS: BP 113/61
[2019-12-26 23:31] LABS: CREATINE KINASE 87 IU/L (39-308)
[2019-12-27] VITALS (10 sets, daily range): BP systolic 97–129; BP diastolic 44–82
[2019-12-27] MEDS: IPRATROPIUM/ALBUTEROL 0.5-3(2.5)MG/3ML NEB NEB SCH ×4 (02:16→20:20)
[2019-12-27] MEDS: METHYLPREDNISOLONE SOD SUCC 125 MG/2 ML VIAL IV SCH ×4 (05:28→22:18)
[2019-12-27] MEDS: ENOXAPARIN 40MG/0.4ML SYR SUBCUT SCH (09:42)
[2019-12-27] MEDS: ASPIRIN 81MG EC TABLET PO SCH ×2 (10:13→10:23)
[2019-12-27] MEDS: FUROSEMIDE 40MG/4ML VIAL IVP SCH (11:45)
[2019-12-27] MEDS: LOSARTAN POTASSIUM 25 MG TABLET PO SCH (11:45)
[2019-12-27 14:21] LABS: *AMPHETAMINES SCREEN URINE NEGATIVE (NEGATIVE); *BARBITURATES SCREEN URINE NEGATIVE (NEGATIVE); *BENZODIAZEPINES SCREEN URINE NEGATIVE (NEGATIVE); *COCAINE SCREEN URINE NEGATIVE (NEGATIVE); CANNABINOID URINE SCREEN NEGATIVE (NEGATIVE); METHADONE URINE SCREEN NEGATIVE (NEGATIVE); OPIATES URINE SCREEN NEGATIVE (NEGATIVE)
[2019-12-27 14:22] LABS: PHENCYCLIDINE URINE SCREEN NEGATIVE (NEGATIVE)
[2019-12-27] MEDS ORDERED: LEVOFLOXACIN 500MG PREMIX 100 ML IV NR (20:00)
[2019-12-28] MEDS: IPRATROPIUM/ALBUTEROL 0.5-3(2.5)MG/3ML NEB NEB SCH ×4 (00:04→15:30)
[2019-12-28] MEDS: METHYLPREDNISOLONE SOD SUCC 125 MG/2 ML VIAL IV SCH ×2 (04:46→11:00)
[2019-12-28 08:00] VITALS: BP 122/62
[2019-12-28] MEDS: LOSARTAN POTASSIUM 25 MG TABLET PO SCH (08:22)
[2019-12-28] MEDS: ENOXAPARIN 40MG/0.4ML SYR SUBCUT SCH (08:24)
[2019-12-28] MEDS: FUROSEMIDE 40MG/4ML VIAL IVP SCH (09:00)
[2019-12-28 09:41] LABS: HEMATOCRIT. 37.6 % (42.0-52.0); HEMOGLOBIN. 11.9 g/dL (14.0-18.0); MEAN CORPUSCULAR HEMOGLOBIN 28.6 pg (28.0-32.0); MEAN CORPUSCULAR VOLUME 89.8 fL (80.0-94.0); MEAN PLATELET VOLUME 9.1 fl (7.4-10.4); PLATELET 229 x1000/uL (130-400); RED BLOOD CELL COUNT 4.18 mill/uL (4.7-6.1); RED CELL DISTRIBUTION WIDTH 14.1 % (11.6-14.6)
[2019-12-28 10:02] VITALS: BP 124/58
[2019-12-28] MEDS ORDERED: LEVOFLOXACIN 500MG PREMIX 100 ML IV SCH (11:00)
[2019-12-28 12:00] VITALS: BP 107/64
[2019-12-28] MEDS ORDERED: LOSA25TA3 PO (12:12)
[2019-12-28] MEDS ORDERED: ALBU18HF2 IH (12:12)
[2019-12-28] MEDS ORDERED: FURO-151 MT (12:12)
[2019-12-28] MEDS ORDERED: BUDE6.9H INH (12:12)
[2019-12-28] MEDS ORDERED: P20 PO (12:12)
[2019-12-28] MEDS ORDERED: APIX5TAB MT (12:12)
[2019-12-28 14:00] VITALS: BP 147/85
[2019-12-28 14:14] LABS: PLATELET ESTIMATE NORMAL
[2019-12-28 15:34] VITALS: BP 147/47
[2019-12-28 15:45] VITALS: BP 147/64
[2019-12-28] MEDS ORDERED: LEVOFLOXACIN 250MG PREMIX 50 ML IV SCH (20:00)
== END 2019-12-28 15:50 | disposition home health service (06) | DRG 189 ==
LOC: ER 08:27 → 5EST 10:25 → EDBEDREQSVC 11:50 → ENRESERV 11:52 → ER 12:21
PROVIDERS: ADMIT Internal Medicine; ATTEND Internal Medicine
PROC: 5A09357 Assistance with Respiratory Ventilation, Less than 24 Consecutive Hours, Continuous Positive Airway Pressure (ICD-10-PCS; principal; 2019-12-26)
DX: J96.01 Acute respiratory failure with hypoxia (principal); I50.43 Acute on chronic combined systolic (congestive) and diastolic (congestive) heart failure; I13.0 Hypertensive heart and chronic kidney disease with heart failure and stage 1 through stage 4 chronic kidney disease, or unspecified chronic kidney disease; J44.1 Chronic obstructive pulmonary disease with (acute) exacerbation; I42.9 Cardiomyopathy, unspecified; J96.02 Acute respiratory failure with hypercapnia; K21.9 Gastro-esophageal reflux disease without esophagitis; D63.8 Anemia in other chronic diseases classified elsewhere; F20.9 Schizophrenia, unspecified; F32.9 Major depressive disorder, single episode, unspecified; I45.10 Unspecified right bundle-branch block; F10.10 Alcohol abuse, uncomplicated; Y90.9 Presence of alcohol in blood, level not specified; F14.10 Cocaine abuse, uncomplicated; I48.0 Paroxysmal atrial fibrillation; Z20.828 Contact with and (suspected) exposure to other viral communicable diseases; N18.9 Chronic kidney disease, unspecified; Z79.2 Long term (current) use of antibiotics; Z79.84 Long term (current) use of oral hypoglycemic drugs; Z79.899 Other long term (current) drug therapy; Z82.49 Family history of ischemic heart disease and other diseases of the circulatory system; Z87.891 Personal history of nicotine dependence; Z79.01 Long term (current) use of anticoagulants; Z79.51 Long term (current) use of inhaled steroids
CPT/HCPCS: 36415; 36600; 71045; 80048; 80053; 80061; 80305; 82375; 82550; 82805; 83735; 83880; 84484; 85025; 87426; 93005; 93306; 93970; 94640; 94660; 99291; C1893; J1650; J1940; J1956; J2370; J2930; J3490; J7060

== ENCOUNTER 2020-04-06 18:03 | Inpatient (IN) | payer MEDICARE, MEDICAID ==
[~2020-04-06] VITALS: Ht 154.4 cm; Wt 69.9 kg
[~2020-04-06 18:03] MED LIST changes: +APIX5TAB MT; -ATROV IH; -DOXY150T5 MT; +FURO-151 MT; -FURO20TA4 MT; +LOSA25TA3 PO
[2020-04-06 19:00] LABS: BASOPHILS % 1.5 % (0.0-2.0); EOSINOPHILS % 6.7 % (0.0-5.0); HEMATOCRIT. 32.9 % (42.0-52.0); HEMOGLOBIN. 10.6 g/dL (14.0-18.0); LYMPHOCYTES % 22.4 % (20.0-50.0); MEAN CORPUSCULAR VOLUME 86.3 fL (80.0-94.0); MEAN PLATELET VOLUME 9.2 fl (7.4-10.4); MONOCYTES % 9.7 % (2.0-8.0); NEUTROPHILS % 59.7 % (40.0-76.0); PLATELET 287 x1000/uL (130-400); RED BLOOD CELL COUNT 3.81 mill/uL (4.7-6.1); RED CELL DISTRIBUTION WIDTH 16.9 % (11.6-14.6)
[2020-04-06 19:08] LABS: CHLORIDE 105 mEq/L (98-107)
[2020-04-06] MEDS ORDERED: ALBUTEROL (0.083%) 2.5MG/3ML NEB HHN STA (19:12)
[2020-04-06] MEDS ORDERED: METHYLPREDNISOLONE SOD SUCC 125 MG/2 ML VIAL IV STA (19:12)
[2020-04-06] MEDS ORDERED: IPRATROPIUM BROMIDE (0.02%) 0.5MG/2.5ML NEB HHN STA (19:12)
[2020-04-06] MEDS ORDERED: AZITHROMYCIN 500 MG in DEXT 5% WATER 250 ML IV ONE (19:15)
[2020-04-06] MEDS ORDERED: FUROSEMIDE 20MG/2ML VIAL IVP ONE (22:30)
[2020-04-07] MEDS ORDERED: DIPHENHYDRAMINE 50MG/ML VIAL IV PRN (04:15)
[2020-04-07] MEDS ORDERED: ONDANSETRON HCL 4MG/2ML INJ IV PRN (04:15)
[2020-04-07] MEDS ORDERED: ACETAMINOPHEN 325MG TABLET PO PRN ×2 (04:15)
[2020-04-07] MEDS ORDERED: IPRATROPIUM/ALBUTEROL 0.5-3(2.5)MG/3ML NEB HHN PRN (04:15)
[2020-04-07] MEDS ORDERED: GUAIFENESIN 200MG/10ML SUGAR FREE UDC PO PRN (04:15)
[2020-04-07] MEDS ORDERED: CLONIDINE 0.1MG TABLET PO PRN (04:15)
[2020-04-07] MEDS ORDERED: MAGNESIUM/ALUMINUM HYDROXIDE/SIMETHICONE 30ML UDC PO PRN (04:15)
[2020-04-07] MEDS: METHYLPREDNISOLONE SOD SUCC 125 MG/2 ML VIAL IV SCH ×3 (05:43→20:32)
[2020-04-07 08:35] VITALS: BP 128/59
[2020-04-07] MEDS: FAMOTIDINE 20MG TABLET PO SCH ×2 (10:34→20:31)
[2020-04-07] MEDS: ENOXAPARIN 40MG/0.4ML SYR SUBCUT SCH (10:35)
[2020-04-07 12:00] VITALS: BP 110/54
[2020-04-07] MEDS: IPRATROPIUM/ALBUTEROL 0.5-3(2.5)MG/3ML NEB HHN SCH ×2 (12:21→20:20)
[2020-04-07] MEDS ORDERED: INFLUENZA VACCINE 05/PF 0.5 ML VIAL IM ONE (12:45)
[2020-04-07] MEDS: SODIUM CHLORIDE 0.9% INJ 3ML FLUSH IVF SCH ×2 (14:00→22:00)
[2020-04-07 16:00] VITALS: BP 112/61
[2020-04-07] MEDS ORDERED: SODIUM POLYSTYRENE SULFONATE 15 G/60 ML BOT PO NR (18:00)
[2020-04-07] MEDS ORDERED: ZOLPIDEM TARTRATE 5MG TABLET PO PRN (18:00)
[2020-04-07] MEDS: LOSARTAN POTASSIUM 25 MG TABLET PO SCH (18:24)
[2020-04-07] MEDS: MONTELUKAST SODIUM 10MG TABLET PO SCH (18:24)
[2020-04-07] MEDS: FUROSEMIDE 20MG TABLET PO SCH (18:24)
[2020-04-07] MEDS ORDERED: TERBUTALINE SULFATE 1MG/ML VIAL SUBCUT NR (18:30)
[2020-04-07 20:00] VITALS: BP 116/57
[2020-04-07] MEDS ORDERED: CARV3.1242 MT (20:05)
[2020-04-07] MEDS ORDERED: SPIR25TA6 MT (20:05)
[2020-04-07] MEDS ORDERED: FERR325T6 MT (20:06)
[2020-04-07] MEDS ORDERED: ATOR20TA65 MT (20:09)
[2020-04-07] MEDS ORDERED: AMIO100T4 MT (20:09)
[2020-04-07] MEDS: CARVEDILOL 3.125 MG TABLET PO SCH (20:31)
[2020-04-08] VITALS: BP 122/60
[2020-04-08] MEDS: IPRATROPIUM/ALBUTEROL 0.5-3(2.5)MG/3ML NEB HHN SCH ×6 (01:14→21:05)
[2020-04-08 04:00] VITALS: BP 124/56
[2020-04-08] MEDS: METHYLPREDNISOLONE SOD SUCC 125 MG/2 ML VIAL IV SCH ×3 (04:57→20:28)
[2020-04-08] MEDS: SODIUM CHLORIDE 0.9% INJ 3ML FLUSH IVF SCH ×3 (06:00→20:29)
[2020-04-08 06:50] LABS: HEMATOCRIT. 31.6 % (42.0-52.0); HEMOGLOBIN. 10.1 g/dL (14.0-18.0); MEAN CORPUSCULAR HEMOGLOBIN 27.3 pg (28.0-32.0); MEAN CORPUSCULAR VOLUME 85.1 fL (80.0-94.0); MEAN PLATELET VOLUME 8.7 fl (7.4-10.4); PLATELET 270 x1000/uL (130-400); RED BLOOD CELL COUNT 3.71 mill/uL (4.7-6.1); RED CELL DISTRIBUTION WIDTH 16.1 % (11.6-14.6)
[2020-04-08 08:00] VITALS: BP 125/78
[2020-04-08] MEDS: CARVEDILOL 3.125 MG TABLET PO SCH ×2 (09:00→20:28)
[2020-04-08] MEDS: FUROSEMIDE 20MG TABLET PO SCH ×2 (09:00→10:29)
[2020-04-08] MEDS: LOSARTAN POTASSIUM 25 MG TABLET PO SCH (09:00)
[2020-04-08] MEDS: FAMOTIDINE 20MG TABLET PO SCH ×2 (09:44→20:29)
[2020-04-08] MEDS: ENOXAPARIN 40MG/0.4ML SYR SUBCUT SCH (09:45)
[2020-04-08 12:00] VITALS: BP 110/55
[2020-04-08 16:00] VITALS: BP 120/63
[2020-04-08] MEDS: MONTELUKAST SODIUM 10MG TABLET PO SCH (18:46)
[2020-04-08 20:00] VITALS: BP 113/69
[2020-04-08 23:13] LABS: PLATELET ESTIMATE NORMAL
[2020-04-09] VITALS: BP 129/70
[2020-04-09] MEDS: IPRATROPIUM/ALBUTEROL 0.5-3(2.5)MG/3ML NEB HHN SCH ×4 (01:44→16:45)
[2020-04-09 04:00] VITALS: BP 114/56
[2020-04-09] MEDS: METHYLPREDNISOLONE SOD SUCC 125 MG/2 ML VIAL IV SCH ×2 (05:36→14:00)
[2020-04-09] MEDS: SODIUM CHLORIDE 0.9% INJ 3ML FLUSH IVF SCH (05:36)
[2020-04-09 06:50] LABS: HEMATOCRIT. 29.8 % (42.0-52.0); HEMOGLOBIN. 9.6 g/dL (14.0-18.0); MEAN CORPUSCULAR HEMOGLOBIN 27.7 pg (28.0-32.0); MEAN CORPUSCULAR VOLUME 85.9 fL (80.0-94.0); MEAN PLATELET VOLUME 9.2 fl (7.4-10.4); PLATELET 275 x1000/uL (130-400); RED BLOOD CELL COUNT 3.47 mill/uL (4.7-6.1); RED CELL DISTRIBUTION WIDTH 16.5 % (11.6-14.6)
[2020-04-09 08:00] VITALS: BP 123/68
[2020-04-09] MEDS: ENOXAPARIN 40MG/0.4ML SYR SUBCUT SCH (10:43)
[2020-04-09] MEDS: FAMOTIDINE 20MG TABLET PO SCH (10:43)
[2020-04-09] MEDS ORDERED: SODIUM POLYSTYRENE SULFONATE 15 G/60 ML BOT PO NR (11:00)
[2020-04-09 12:00] VITALS: BP 118/62
[2020-04-09 12:47] LABS: PLATELET ESTIMATE NORMAL
[2020-04-09] MEDS ORDERED: P20 PO (13:49)
[2020-04-09] MEDS ORDERED: BUDE6.9H INH (13:49)
[2020-04-09] MEDS ORDERED: ALBU18HF2 IH (13:49)
[2020-04-09 16:00] VITALS: BP 109/44
[2020-04-09] MEDS ORDERED: IPRA3AMP9 NEB (16:37)
[2020-04-09 18:47] VITALS: BP 109/44
== END 2020-04-09 19:20 | disposition home or self-care (01) | DRG 291 ==
LOC: ER 18:03 → EDBEDREQDT 04-07 02:08 → EDBEDREQ 04-07 02:08 → EDBEDREQTM 04-07 02:08 → EDBEDREQ 04-07 02:09 → 8WST 04-07 03:35 → EDBEDREQ 04-07 03:50 → EDBEDREQTM 04-07 03:50 → ENRESERV 04-07 08:01
PROVIDERS: ADMIT Family Medicine Adult Medicine; ATTEND Family Medicine Adult Medicine
DX: I13.0 Hypertensive heart and chronic kidney disease with heart failure and stage 1 through stage 4 chronic kidney disease, or unspecified chronic kidney disease (principal); I50.23 Acute on chronic systolic (congestive) heart failure; J96.21 Acute and chronic respiratory failure with hypoxia; J44.1 Chronic obstructive pulmonary disease with (acute) exacerbation; N17.9 Acute kidney failure, unspecified; D72.10 Eosinophilia, unspecified; F20.9 Schizophrenia, unspecified; I43 Cardiomyopathy in diseases classified elsewhere; I45.10 Unspecified right bundle-branch block; E87.5 Hyperkalemia; F14.10 Cocaine abuse, uncomplicated; F32.9 Major depressive disorder, single episode, unspecified; I48.0 Paroxysmal atrial fibrillation; Z20.822 Contact with and (suspected) exposure to COVID-19; K21.9 Gastro-esophageal reflux disease without esophagitis; N18.9 Chronic kidney disease, unspecified; Z79.01 Long term (current) use of anticoagulants; Z87.891 Personal history of nicotine dependence; Z91.14 Patient's other noncompliance with medication regimen; Z99.81 Dependence on supplemental oxygen; Z79.899 Other long term (current) drug therapy; Z79.1 Long term (current) use of non-steroidal anti-inflammatories (NSAID)
CPT/HCPCS: 36415; 71045; 80048; 80053; 83735; 83880; 84484; 85025; 90686; 93005; 94640; 96365; 97162; 99291; C1893; C9803; J0456; J1650; J1940; J2930; J3105; J7060; U0003

== ENCOUNTER 2020-06-01 04:12 | Inpatient (IN) | payer MEDICARE, MEDICAID ==
[~2020-06-01] VITALS: Ht 175.3 cm; Wt 75.3 kg
[~2020-06-01 04:12] MED LIST changes: +AMIO100T4 MT; +ATOR20TA65 MT; +CARV3.1242 MT; +FERR325T6 MT; +IPRA3AMP9 NEB; +SPIR25TA6 MT
[2020-06-01] MEDS ORDERED: IPRATROPIUM BROMIDE (0.02%) 0.5MG/2.5ML NEB HHN STA (04:20)
[2020-06-01] MEDS ORDERED: METHYLPREDNISOLONE SOD SUCC 125 MG/2 ML VIAL IV STA (04:20)
[2020-06-01] MEDS ORDERED: MAGNESIUM 2 G PREMIX 50 ML IV ONE (04:30)
[2020-06-01] MEDS: ALBUTEROL (0.083%) 2.5MG/3ML NEB HHN SCH ×3 (04:54→06:14)
[2020-06-01 04:56] LABS: BASOPHILS % 0.8 % (0.0-2.0); CHLORIDE 109 mEq/L (98-107); HEMOGLOBIN. 12.4 g/dL (14.0-18.0); LYMPHOCYTES % 17.9 % (20.0-50.0); MEAN CORPUSCULAR HEMOGLOBIN 27.6 pg (28.0-32.0); MEAN CORPUSCULAR VOLUME 88.8 fL (80.0-94.0); MEAN PLATELET VOLUME 8.7 fl (7.4-10.4); MONOCYTES % 7.6 % (2.0-8.0); NEUTROPHILS % 67.7 % (40.0-76.0); PLATELET 213 x1000/uL (130-400); RED BLOOD CELL COUNT 4.51 mill/uL (4.7-6.1); RED CELL DISTRIBUTION WIDTH 16.8 % (11.6-14.6)
[2020-06-01 05:05] LABS: BG BASE EXCESS 0.1 mmol/L (-2.0-2.0); BG CARBOXYHEMOGLOBIN 0.8 % (0.5-1.5); BG DEOXYHEMOGLOBIN 2.6 % (0.0-5.0); BG FRACTION INSPIRED OXYGEN 28; BG HCO3 ACT 25.8 mmol/L (22.0-26.0); BG METHEMOGLOBIN 0.3 % (0.0-1.5); BG OXYGEN SATURATION 97.4 % (92.0-98.5); BG OXYHEMOGLOBIN 96.3 % (94.0-97.0); BG PCO2 46.2 mmHg (35.0-45.0); BG PH 7.365 (7.350-7.450); BG SAMPLE SITE Other; BG VENT MODE NASAL CANNULA
[2020-06-01] MEDS ORDERED: ONDANSETRON HCL 4MG/2ML INJ IV PRN (10:45)
[2020-06-01] MEDS ORDERED: BENZONATATE 100MG CAPSULE PO PRN (10:45)
[2020-06-01] MEDS ORDERED: ACETAMINOPHEN 325MG TABLET PO PRN (10:45)
[2020-06-01] MEDS ORDERED: ENOXAPARIN 40MG/0.4ML SYR SUBCUT SCH (11:00)
[2020-06-01] MEDS: IPRATROPIUM/ALBUTEROL 0.5-3(2.5)MG/3ML NEB HHN SCH ×3 (11:05→20:56)
[2020-06-01] MEDS: METHYLPREDNISOLONE SOD SUCC 40 MG/ML VIAL IV SCH ×2 (13:33→18:59)
[2020-06-01 15:57] VITALS: BP 110/71
[2020-06-01 16:00] VITALS: BP 110/71
[2020-06-01] MEDS: APIXABAN 5 MG TABLET PO SCH (17:28)
[2020-06-01 20:00] VITALS: BP 124/52
[2020-06-01] MEDS: FAMOTIDINE 20MG TABLET PO SCH (21:13)
[2020-06-01] MEDS: CARVEDILOL 6.25 MG TABLET PO SCH (21:13)
[2020-06-02] MEDS: IPRATROPIUM/ALBUTEROL 0.5-3(2.5)MG/3ML NEB HHN SCH ×5 (00:25→15:48)
[2020-06-02 04:00] VITALS: BP 121/47
[2020-06-02] MEDS: METHYLPREDNISOLONE SOD SUCC 40 MG/ML VIAL IV SCH ×2 (05:54→12:01)
[2020-06-02] MEDS: FAMOTIDINE 20MG TABLET PO SCH (09:00)
[2020-06-02] MEDS ORDERED: LOSARTAN POTASSIUM 25 MG TABLET PO SCH (09:00)
[2020-06-02] MEDS ORDERED: FUROSEMIDE 40MG TABLET PO SCH (09:00)
[2020-06-02] MEDS: CARVEDILOL 6.25 MG TABLET PO SCH (09:00)
[2020-06-02] MEDS: APIXABAN 5 MG TABLET PO SCH (09:00)
[2020-06-02] MEDS ORDERED: BUDESONIDE 0.5MG/2ML NEB HHN SCH (12:00)
[2020-06-02] MEDS ORDERED: IPRATROPIUM/ALBUTEROL 0.5-3(2.5)MG/3ML NEB HHN PRN (12:00)
[2020-06-02] MEDS ORDERED: MONTELUKAST SODIUM 10MG TABLET PO SCH (17:00)
[2020-06-02] MEDS ORDERED: BUDE6.9H INH (17:49)
[2020-06-02] MEDS ORDERED: P20 PO (17:49)
[2020-06-02] MEDS ORDERED: IPRA3AMP9 NEB (17:49)
[2020-06-02] MEDS ORDERED: FURO-151 MT (17:49)
== END 2020-06-02 20:07 | disposition home or self-care (01) | DRG 189 ==
LOC: ER 04:12 → 6WST 06:20 → EDBEDREQ 06:23 → EDBEDREQTM 06:23 → ENRESERV 08:16
PROVIDERS: ADMIT Internal Medicine; ATTEND Internal Medicine
PROC: 5A09357 Assistance with Respiratory Ventilation, Less than 24 Consecutive Hours, Continuous Positive Airway Pressure (ICD-10-PCS; principal; 2020-06-01)
DX: J96.01 Acute respiratory failure with hypoxia (principal); N17.0 Acute kidney failure with tubular necrosis; I50.23 Acute on chronic systolic (congestive) heart failure; J44.1 Chronic obstructive pulmonary disease with (acute) exacerbation; I13.0 Hypertensive heart and chronic kidney disease with heart failure and stage 1 through stage 4 chronic kidney disease, or unspecified chronic kidney disease; I42.9 Cardiomyopathy, unspecified; D64.9 Anemia, unspecified; I48.0 Paroxysmal atrial fibrillation; E78.5 Hyperlipidemia, unspecified; F20.9 Schizophrenia, unspecified; D72.10 Eosinophilia, unspecified; N18.9 Chronic kidney disease, unspecified; E87.8 Other disorders of electrolyte and fluid balance, not elsewhere classified; K21.9 Gastro-esophageal reflux disease without esophagitis; E78.00 Pure hypercholesterolemia, unspecified; I25.10 Atherosclerotic heart disease of native coronary artery without angina pectoris; Z79.01 Long term (current) use of anticoagulants; Z87.891 Personal history of nicotine dependence; Z79.899 Other long term (current) drug therapy
CPT/HCPCS: 36415; 36600; 71045; 80053; 82375; 82805; 83605; 83880; 84484; 85025; 93005; 94640; 99291; J1650; J2920; J2930; J3475; J7626

== ENCOUNTER 2020-07-08 00:43 | Inpatient (IN) | payer MEDICARE, MEDICAID ==
[~2020-07-08] VITALS: Ht 177.8 cm; Wt 61.7 kg
[2020-07-08] MEDS ORDERED: METHYLPREDNISOLONE SOD SUCC 125 MG/2 ML VIAL IV STA (01:11)
[2020-07-08] MEDS ORDERED: IPRATROPIUM BROMIDE (0.02%) 0.5MG/2.5ML NEB HHN STA (01:11)
[2020-07-08] MEDS ORDERED: ONDANSETRON HCL 4MG/2ML INJ IV STA (01:11)
[2020-07-08] MEDS ORDERED: MAGNESIUM 2 G PREMIX 50 ML IV ONE (01:15)
[2020-07-08] MEDS: ALBUTEROL (0.083%) 2.5MG/3ML NEB HHN SCH ×3 (01:25→02:00)
[2020-07-08 03:03] LABS: BASOPHILS % 0.7 % (0.0-2.0); EOSINOPHILS % 3.8 % (0.0-5.0); HEMATOCRIT. 38.7 % (42.0-52.0); HEMOGLOBIN. 12.3 g/dL (14.0-18.0); LYMPHOCYTES % 15.3 % (20.0-50.0); MEAN CORPUSCULAR HEMOGLOBIN 28.7 pg (28.0-32.0); MEAN PLATELET VOLUME 8.7 fl (7.4-10.4); NEUTROPHILS % 77.2 % (40.0-76.0); PLATELET 225 x1000/uL (130-400); RED CELL DISTRIBUTION WIDTH 15.3 % (11.6-14.6)
[2020-07-08 03:04] LABS: CHLORIDE 106 mEq/L (98-107)
[2020-07-08] MEDS ORDERED: HYDROCODONE/ACETAMINOPHEN 5/325MG TABLET PO PRN (03:15)
[2020-07-08] MEDS ORDERED: ONDANSETRON HCL 4MG/2ML INJ IV PRN (03:15)
[2020-07-08] MEDS ORDERED: DOCUSATE SODIUM 100MG CAPSULE PO PRN (03:15)
[2020-07-08] MEDS ORDERED: IPRATROPIUM/ALBUTEROL 0.5-3(2.5)MG/3ML NEB HHN PRN (03:15)
[2020-07-08] MEDS ORDERED: ACETAMINOPHEN 325MG TABLET PO PRN (03:15)
[2020-07-08] MEDS ORDERED: GUAIFENESIN 200MG/10ML SUGAR FREE UDC PO PRN (03:15)
[2020-07-08] MEDS ORDERED: LEVOFLOXACIN 500MG PREMIX 100 ML IV NR (04:00)
[2020-07-08 04:03] LABS: BG BASE EXCESS -1.3 mmol/L (-2.0-2.0); BG CARBOXYHEMOGLOBIN 0.1 % (0.5-1.5); BG DEOXYHEMOGLOBIN 3.2 % (0.0-5.0); BG HCO3 ACT 25.2 mmol/L (22.0-26.0); BG METHEMOGLOBIN 0.1 % (0.0-1.5); BG OXYGEN SATURATION 96.8 % (92.0-98.5); BG OXYHEMOGLOBIN 96.6 % (94.0-97.0); BG PCO2 49.9 mmHg (35.0-45.0); BG PH 7.321 (7.350-7.450); BG PO2 94.3 mmHg (75.0-100.0); BG SAMPLE SITE RIGHT RADIAL; BG TOTAL HEMOGLOBIN 12.4 g/dL (12.0-18.0); BG VENT MODE ROOM AIR
[2020-07-08 06:39] VITALS: BP 139/64
[2020-07-08 08:00] VITALS: BP 108/56
[2020-07-08] MEDS ORDERED: METHYLPREDNISOLONE SOD SUCC 125 MG/2 ML VIAL IV SCH (08:00)
[2020-07-08] MEDS: IPRATROPIUM/ALBUTEROL 0.5-3(2.5)MG/3ML NEB HHN SCH ×4 (08:46→21:01)
[2020-07-08] MEDS ORDERED: ENOXAPARIN 40MG/0.4ML SYR SUBCUT SCH (09:00)
[2020-07-08] MEDS: FUROSEMIDE 40MG TABLET PO SCH (09:45)
[2020-07-08] MEDS ORDERED: LOSARTAN POTASSIUM 25 MG TABLET PO SCH (09:45)
[2020-07-08] MEDS: CARVEDILOL 3.125 MG TABLET PO SCH (09:45)
[2020-07-08] MEDS ORDERED: SODIUM POLYSTYRENE SULFONATE 15 G/60 ML BOT PO NR (10:00)
[2020-07-08] MEDS: LORAZEPAM 2MG/ML CPJ IV PRN (10:11)
[2020-07-08] MEDS: ATORVASTATIN CALCIUM 20MG TABLET PO SCH (10:11)
[2020-07-08] MEDS: APIXABAN 2.5 MG TABLET PO SCH ×2 (10:11→17:57)
[2020-07-08 12:00] VITALS: BP 107/58
[2020-07-08 16:00] VITALS: BP 105/46
[2020-07-08] MEDS: METHYLPREDNISOLONE SOD SUCC 125 MG/2 ML VIAL IV SCH ×2 (16:00→21:46)
[2020-07-08] MEDS: MONTELUKAST SODIUM 10MG TABLET PO SCH (17:57)
[2020-07-08 20:00] VITALS: BP 119/58
[2020-07-08] MEDS ORDERED: AMIODARONE HCL 200 MG TABLET PO SCH (21:00)
[2020-07-08] MEDS: TRAZODONE HCL 50MG TABLET PO SCH (21:45)
[2020-07-08] MEDS: FAMOTIDINE 20MG TABLET PO SCH (21:46)
[2020-07-09] VITALS: BP 124/59
[2020-07-09] MEDS: IPRATROPIUM/ALBUTEROL 0.5-3(2.5)MG/3ML NEB HHN SCH ×6 (01:05→21:11)
[2020-07-09 04:00] VITALS: BP 112/50
[2020-07-09] MEDS: METHYLPREDNISOLONE SOD SUCC 125 MG/2 ML VIAL IV SCH ×2 (05:19→09:10)
[2020-07-09 06:19] LABS: HEMATOCRIT. 37.9 % (42.0-52.0); HEMOGLOBIN. 11.8 g/dL (14.0-18.0); MEAN CORPUSCULAR HEMOGLOBIN 28.4 pg (28.0-32.0); MEAN CORPUSCULAR VOLUME 91.3 fL (80.0-94.0); MEAN PLATELET VOLUME 8.8 fl (7.4-10.4); PLATELET 222 x1000/uL (130-400); RED BLOOD CELL COUNT 4.15 mill/uL (4.7-6.1); RED CELL DISTRIBUTION WIDTH 15.1 % (11.6-14.6)
[2020-07-09] MEDS: APIXABAN 2.5 MG TABLET PO SCH ×2 (09:09→18:56)
[2020-07-09] MEDS: ATORVASTATIN CALCIUM 20MG TABLET PO SCH (09:09)
[2020-07-09] MEDS: CARVEDILOL 3.125 MG TABLET PO SCH (09:10)
[2020-07-09] MEDS: LEVOFLOXACIN 250MG PREMIX 50 ML IV SCH (09:10)
[2020-07-09] MEDS: FUROSEMIDE 40MG TABLET PO SCH (09:10)
[2020-07-09 12:00] VITALS: BP 114/69
[2020-07-09] MEDS ORDERED: SODIUM POLYSTYRENE SULFONATE 15 G/60 ML BOT PO NR ×2 (12:00→22:00)
[2020-07-09 12:13] LABS: CREATINE KINASE 97 IU/L (39-308)
[2020-07-09 12:19] LABS: CLARITY URINE CLEAR (CLEAR); COLOR URINE YELLOW (YELLOW); KETONES URINE NEGATIVE (NEGATIVE); LEUKOCYTE ESTERASE URINE NEGATIVE (NEGATIVE); NITRITE URINE NEGATIVE (NEGATIVE); OCCULT BLOOD URINE NEGATIVE (NEGATIVE); PROTEIN URINE NEGATIVE (NEGATIVE); UROBILINOGEN URINE 0.2 E.U./dL (0.2-1.0)
[2020-07-09 12:46] LABS: *AMPHETAMINES SCREEN URINE NEGATIVE (NEGATIVE); *BARBITURATES SCREEN URINE NEGATIVE (NEGATIVE); *BENZODIAZEPINES SCREEN URINE NEGATIVE (NEGATIVE); *COCAINE SCREEN URINE NEGATIVE (NEGATIVE); METHADONE URINE SCREEN NEGATIVE (NEGATIVE)
[2020-07-09 12:47] LABS: CANNABINOID URINE SCREEN NEGATIVE (NEGATIVE); OPIATES URINE SCREEN NEGATIVE (NEGATIVE); PHENCYCLIDINE URINE SCREEN NEGATIVE (NEGATIVE)
[2020-07-09 15:54] LABS: PLATELET ESTIMATE NORMAL
[2020-07-09 16:00] VITALS: BP 128/54
[2020-07-09] MEDS: MONTELUKAST SODIUM 10MG TABLET PO SCH (18:56)
[2020-07-09 20:00] VITALS: BP 112/57
[2020-07-09] MEDS: TRAZODONE HCL 50MG TABLET PO SCH (21:01)
[2020-07-09] MEDS: FAMOTIDINE 20MG TABLET PO SCH (21:01)
[2020-07-09] MEDS: METHYLPREDNISOLONE SOD SUCC 40 MG/ML VIAL IV SCH (23:49)
[2020-07-10] VITALS: BP 133/74
[2020-07-10] MEDS: METHYLPREDNISOLONE SOD SUCC 40 MG/ML VIAL IV SCH
[2020-07-10] MEDS: IPRATROPIUM/ALBUTEROL 0.5-3(2.5)MG/3ML NEB HHN SCH ×5 (02:44→21:31)
[2020-07-10 04:00] VITALS: BP 109/61
[2020-07-10 07:22] LABS: HEMATOCRIT. 37.5 % (42.0-52.0); MEAN CORPUSCULAR HEMOGLOBIN 28.3 pg (28.0-32.0); MEAN CORPUSCULAR VOLUME 88.7 fL (80.0-94.0); MEAN PLATELET VOLUME 9.1 fl (7.4-10.4); PLATELET 273 x1000/uL (130-400); RED BLOOD CELL COUNT 4.23 mill/uL (4.7-6.1); RED CELL DISTRIBUTION WIDTH 15.5 % (11.6-14.6)
[2020-07-10 07:47] LABS: PHOSPHORUS 4.5 mg/dL (2.5-4.9)
[2020-07-10 08:00] VITALS: BP 134/59
[2020-07-10] MEDS: FUROSEMIDE 40MG TABLET PO SCH (11:21)
[2020-07-10] MEDS: LEVOFLOXACIN 250MG PREMIX 50 ML IV SCH (11:21)
[2020-07-10] MEDS: LORAZEPAM 2MG/ML CPJ IV PRN (11:21)
[2020-07-10] MEDS: APIXABAN 2.5 MG TABLET PO SCH ×2 (11:22→16:58)
[2020-07-10] MEDS: ATORVASTATIN CALCIUM 20MG TABLET PO SCH (11:22)
[2020-07-10] MEDS: CARVEDILOL 3.125 MG TABLET PO SCH (11:22)
[2020-07-10 12:00] VITALS: BP 120/59
[2020-07-10 13:59] LABS: PLATELET ESTIMATE NORMAL
[2020-07-10 16:00] VITALS: BP 103/52
[2020-07-10] MEDS: MONTELUKAST SODIUM 10MG TABLET PO SCH (16:58)
[2020-07-10] MEDS: DEXAMETHASONE 10 MG/ML VIAL IM SCH (18:12)
[2020-07-10 20:00] VITALS: BP 94/45
[2020-07-10] MEDS: FAMOTIDINE 20MG TABLET PO SCH (20:01)
[2020-07-10] MEDS: TRAZODONE HCL 50MG TABLET PO SCH (20:01)
[2020-07-10] MEDS ORDERED: DEXAMETHASONE 10 MG/ML VIAL IM SCH (22:00)
[2020-07-11] VITALS: BP 104/44
[2020-07-11] MEDS: IPRATROPIUM/ALBUTEROL 0.5-3(2.5)MG/3ML NEB HHN SCH ×5 (00:41→16:25)
[2020-07-11 04:00] VITALS: BP 109/61
[2020-07-11 08:00] VITALS: BP 111/43
[2020-07-11 08:26] LABS: EOSINOPHILS % 0.1 % (0.0-5.0); HEMATOCRIT. 33.3 % (42.0-52.0); HEMOGLOBIN. 11.1 g/dL (14.0-18.0); LYMPHOCYTES % 9.4 % (20.0-50.0); MEAN CORPUSCULAR HEMOGLOBIN 29.2 pg (28.0-32.0); MEAN CORPUSCULAR VOLUME 87.3 fL (80.0-94.0); MEAN PLATELET VOLUME 9.2 fl (7.4-10.4); MONOCYTES % 10.7 % (2.0-8.0); NEUTROPHILS % 79.8 % (40.0-76.0); PLATELET 241 x1000/uL (130-400); RED BLOOD CELL COUNT 3.81 mill/uL (4.7-6.1); RED CELL DISTRIBUTION WIDTH 14.6 % (11.6-14.6)
[2020-07-11 12:00] VITALS: BP 105/49
[2020-07-11] MEDS: MONTELUKAST SODIUM 10MG TABLET PO SCH (13:21)
[2020-07-11] MEDS: FUROSEMIDE 40MG TABLET PO SCH (13:22)
[2020-07-11] MEDS: APIXABAN 2.5 MG TABLET PO SCH ×2 (13:22→17:29)
[2020-07-11] MEDS: ATORVASTATIN CALCIUM 20MG TABLET PO SCH (13:22)
[2020-07-11] MEDS: DEXAMETHASONE 10 MG/ML VIAL IM SCH (13:23)
[2020-07-11] MEDS: CARVEDILOL 3.125 MG TABLET PO SCH (13:23)
[2020-07-11] MEDS: LEVOFLOXACIN 250MG PREMIX 50 ML IV SCH (13:24)
[2020-07-11] MEDS ORDERED: ATOR20TA65 MT (15:40)
[2020-07-11] MEDS ORDERED: BUDE6.9H INH (15:40)
[2020-07-11] MEDS ORDERED: IPRA3AMP9 HHN (15:40)
[2020-07-11] MEDS ORDERED: MONT10TA21 PO (15:40)
[2020-07-11] MEDS ORDERED: CARV3.1242 MT (15:40)
[2020-07-11] MEDS ORDERED: FERR325T6 MT (15:40)
[2020-07-11] MEDS ORDERED: APIX5TAB MT (15:40)
[2020-07-11] MEDS ORDERED: FURO-151 MT (15:40)
[2020-07-11] MEDS ORDERED: TRAZ-251 PO (15:40)
[2020-07-11 16:00] VITALS: BP 106/47
[2020-07-11 16:35] VITALS: BP 112/54
[2020-07-12] MEDS ORDERED: LEVOFLOXACIN 250MG TABLET PO SCH (11:00)
== END 2020-07-11 17:45 | disposition home health service (06) | DRG 189 ==
LOC: ER 00:43 → 8WST 02:41 → EDBEDREQ 02:50 → EDBEDREQTM 02:50 → ENRESERV 04:07 → 8WST 05:07
PROVIDERS: ADMIT Family Medicine Adult Medicine; ATTEND Hospitalist
DX: J96.01 Acute respiratory failure with hypoxia (principal); N17.9 Acute kidney failure, unspecified; J44.1 Chronic obstructive pulmonary disease with (acute) exacerbation; I42.0 Dilated cardiomyopathy; I13.0 Hypertensive heart and chronic kidney disease with heart failure and stage 1 through stage 4 chronic kidney disease, or unspecified chronic kidney disease; E87.1 Hypo-osmolality and hyponatremia; D68.59 Other primary thrombophilia; K21.9 Gastro-esophageal reflux disease without esophagitis; N18.9 Chronic kidney disease, unspecified; I50.9 Heart failure, unspecified; I48.0 Paroxysmal atrial fibrillation; I45.10 Unspecified right bundle-branch block; F20.9 Schizophrenia, unspecified; E87.5 Hyperkalemia; E78.00 Pure hypercholesterolemia, unspecified; T38.0X5A Adverse effect of glucocorticoids and synthetic analogues, initial encounter; D72.829 Elevated white blood cell count, unspecified; Z82.49 Family history of ischemic heart disease and other diseases of the circulatory system; Z91.14 Patient's other noncompliance with medication regimen; Z99.81 Dependence on supplemental oxygen; Z79.899 Other long term (current) drug therapy; Z79.01 Long term (current) use of anticoagulants; Z79.51 Long term (current) use of inhaled steroids; Z87.891 Personal history of nicotine dependence; Y92.89 Other specified places as the place of occurrence of the external cause
CPT/HCPCS: 36415; 36600; 71045; 80048; 80053; 80305; 81003; 82375; 82550; 82805; 83605; 83735; 83880; 84100; 84484; 85025; 93005; 93306; 94640; 99291; C1893; J1100; J1650; J1956; J2060; J2405; J2920; J2930; J3475; J7040

== ENCOUNTER 2020-08-01 19:19 | Inpatient (IN) | payer MEDICARE, MEDICAID ==
[~2020-08-01] VITALS: Ht 177.8 cm; Wt 64.2 kg
[~2020-08-01 19:19] MED LIST changes: -ALBU18HF2 IH; -AMIO100T4 MT; +IPRA3AMP9 HHN; -LOSA25TA3 PO; +MONT10TA21 PO; -P20 PO; -SPIR25TA6 MT; +TRAZ-251 PO
[2020-08-01] MEDS ORDERED: METHYLPREDNISOLONE SOD SUCC 125 MG/2 ML VIAL IV STA (19:25)
[2020-08-01] MEDS ORDERED: IPRATROPIUM BROMIDE (0.02%) 0.5MG/2.5ML NEB HHN STA (19:25)
[2020-08-01] MEDS ORDERED: ALBUTEROL (0.083%) 2.5MG/3ML NEB HHN STA (19:25)
[2020-08-01] MEDS ORDERED: ASPIRIN 81MG TABLET PO ONE (19:30)
[2020-08-01] MEDS ORDERED: SODIUM CHLORIDE 0.9% 1,000 ML IV ONE (19:30)
[2020-08-01 20:43] LABS: BASOPHILS % 1.2 % (0.0-2.0); EOSINOPHILS % 4.2 % (0.0-5.0); HEMATOCRIT. 39.1 % (42.0-52.0); HEMOGLOBIN. 12.5 g/dL (14.0-18.0); LYMPHOCYTES % 38.4 % (20.0-50.0); MEAN CORPUSCULAR HEMOGLOBIN 28.8 pg (28.0-32.0); MEAN PLATELET VOLUME 9.3 fl (7.4-10.4); NEUTROPHILS % 48.2 % (40.0-76.0); PLATELET 287 x1000/uL (130-400); RED BLOOD CELL COUNT 4.34 mill/uL (4.7-6.1); RED CELL DISTRIBUTION WIDTH 14.6 % (11.6-14.6)
[2020-08-01 20:47] LABS: CHLORIDE 106 mEq/L (98-107)
[2020-08-01] MEDS ORDERED: LEVOFLOXACIN 750MG PREMIX 150 ML IV ONE (21:15)
[2020-08-01] MEDS ORDERED: SODIUM BICARBONATE 8.4% 1 MEQ/ML 50ML SYR IV ONE (21:15)
[2020-08-01] MEDS ORDERED: SODIUM CHLORIDE 0.9% 1000ML BAG (SEPSIS BOLUS) IV ONE (21:30)
[2020-08-01 21:40] LABS: BG BASE EXCESS -1.3 mmol/L (-2.0-2.0); BG CARBOXYHEMOGLOBIN 0.4 % (0.5-1.5); BG DEOXYHEMOGLOBIN 0.9 % (0.0-5.0); BG FRACTION INSPIRED OXYGEN 50; BG HCO3 ACT 25.7 mmol/L (22.0-26.0); BG METHEMOGLOBIN 0.3 % (0.0-1.5); BG OXYGEN SATURATION 99.1 % (92.0-98.5); BG OXYHEMOGLOBIN 98.4 % (94.0-97.0); BG PCO2 53.7 mmHg (35.0-45.0); BG PH 7.298 (7.350-7.450); BG PO2 227.5 mmHg (75.0-100.0); BG SAMPLE SITE RIGHT BRACHIAL; BG TOTAL HEMOGLOBIN 11.9 g/dL (12.0-18.0); BG TOTAL RESPIRATORY RATE 25 b/min; BG VENT MODE MASK - BIPAP
[2020-08-01 22:38] LABS: CLARITY URINE CLEAR (CLEAR); COLOR URINE YELLOW (YELLOW); KETONES URINE NEGATIVE (NEGATIVE); LEUKOCYTE ESTERASE URINE NEGATIVE (NEGATIVE); NITRITE URINE NEGATIVE (NEGATIVE); OCCULT BLOOD URINE NEGATIVE (NEGATIVE); PROTEIN URINE 1+ (NEGATIVE); SPECIFIC GRAVITY URINE 1.012 (1.005-1.030)
[2020-08-02] VITALS (13 sets, daily range): BP systolic 106–139; BP diastolic 56–78
[2020-08-02] MEDS ORDERED: ACETAMINOPHEN 500MG TABLET PO PRN (00:30)
[2020-08-02] MEDS ORDERED: LORAZEPAM 2MG/ML CPJ IV NR (01:30)
[2020-08-02] MEDS ORDERED: SODIUM POLYSTYRENE SULFONATE 15 G/60 ML BOT PO NR (02:00)
[2020-08-02] MEDS: SODIUM CHLORIDE 0.9% 1,000 ML IV SCH ×2 (02:00→09:28)
[2020-08-02] MEDS: IPRATROPIUM/ALBUTEROL 0.5-3(2.5)MG/3ML NEB HHN PRN ×4 (04:47→22:00)
[2020-08-02] MEDS: METHYLPREDNISOLONE SOD SUCC 125 MG/2 ML VIAL IV SCH ×3 (06:00→22:16)
[2020-08-02] MEDS: PIPERACILLIN/TAZOBACTAM 2.25G in DEXTROSE 5% WATER 50ML IV SCH ×3 (06:00→18:31)
[2020-08-02] MEDS ORDERED: APIXABAN 2.5 MG TABLET PO SCH (09:00)
[2020-08-02] MEDS: CARVEDILOL 3.125 MG TABLET PO SCH ×2 (09:27→20:15)
[2020-08-02] MEDS: FAMOTIDINE 20MG/2ML VIAL IV SCH (09:28)
[2020-08-02 09:51] LABS: HEMATOCRIT 32.6 % (42.0-52.0); HEMOGLOBIN 10.9 g/dL (14.0-18.0); MEAN CORPUSCULAR HEMOGLOBIN 29.3 pg (28.0-32.0); MEAN CORPUSCULAR VOLUME 87.5 fL (80.0-94.0); PLATELET 231 x1000/uL (130-400); RED BLOOD CELL COUNT 3.72 mill/uL (4.7-6.1); RED CELL DISTRIBUTION WIDTH 14.7 % (11.6-14.6)
[2020-08-02 09:58] LABS: CHLORIDE 108 mEq/L (98-107)
[2020-08-02] MEDS ORDERED: LORAZEPAM 0.5MG TABLET PO PRN (12:45)
[2020-08-02] MEDS: LORAZEPAM 0.5MG TABLET PO PRN ×2 (13:04→20:15)
[2020-08-02] MEDS: APIXABAN 5 MG TABLET PO SCH (18:31)
[2020-08-02] MEDS: TRAZODONE HCL 50MG TABLET PO SCH (20:15)
[2020-08-02] MEDS: ATORVASTATIN CALCIUM 10MG TABLET PO SCH (20:15)
[2020-08-03] VITALS (15 sets, daily range): BP systolic 107–185; BP diastolic 57–108
[2020-08-03] MEDS: PIPERACILLIN/TAZOBACTAM 2.25G in DEXTROSE 5% WATER 50ML IV SCH ×5 (00:22→23:49)
[2020-08-03] MEDS: METHYLPREDNISOLONE SOD SUCC 125 MG/2 ML VIAL IV SCH ×3 (05:12→21:29)
[2020-08-03 07:12] LABS: HEMATOCRIT. 31.2 % (42.0-52.0); HEMOGLOBIN. 9.9 g/dL (14.0-18.0); MEAN CORPUSCULAR HEMOGLOBIN 28.2 pg (28.0-32.0); MEAN CORPUSCULAR VOLUME 88.8 fL (80.0-94.0); MEAN PLATELET VOLUME 9.3 fl (7.4-10.4); PLATELET 206 x1000/uL (130-400); RED BLOOD CELL COUNT 3.52 mill/uL (4.7-6.1); RED CELL DISTRIBUTION WIDTH 14.6 % (11.6-14.6)
[2020-08-03] MEDS: APIXABAN 5 MG TABLET PO SCH ×2 (08:57→17:24)
[2020-08-03] MEDS: FAMOTIDINE 20MG/2ML VIAL IV SCH (08:57)
[2020-08-03] MEDS: CARVEDILOL 3.125 MG TABLET PO SCH ×2 (08:58→21:00)
[2020-08-03] MEDS: SODIUM CHLORIDE 0.9% 1,000 ML IV SCH ×2 (11:51→17:25)
[2020-08-03 13:52] LABS: BG BASE EXCESS -1.6 mmol/L (-2.0-2.0); BG CARBOXYHEMOGLOBIN 0.3 % (0.5-1.5); BG DEOXYHEMOGLOBIN 2.9 % (0.0-5.0); BG FRACTION INSPIRED OXYGEN 30; BG HCO3 ACT 25.3 mmol/L (22.0-26.0); BG METHEMOGLOBIN 0.2 % (0.0-1.5); BG OXYGEN SATURATION 97.1 % (92.0-98.5); BG OXYHEMOGLOBIN 96.6 % (94.0-97.0); BG PCO2 52.4 mmHg (35.0-45.0); BG PH 7.301 (7.350-7.450); BG PO2 100.5 mmHg (75.0-100.0); BG SAMPLE SITE RIGHT BRACHIAL; BG TOTAL HEMOGLOBIN 11.6 g/dL (12.0-18.0); BG VENT MODE MASK - BIPAP
[2020-08-03] MEDS: IPRATROPIUM/ALBUTEROL 0.5-3(2.5)MG/3ML NEB HHN SCH ×2 (16:26→21:34)
[2020-08-03 16:36] LABS: PLATELET ESTIMATE NORMAL
[2020-08-03] MEDS: ATORVASTATIN CALCIUM 10MG TABLET PO SCH (21:00)
[2020-08-03] MEDS: TRAZODONE HCL 50MG TABLET PO SCH (21:00)
[2020-08-03] MEDS: BUDESONIDE 0.5MG/2ML NEB HHN SCH (21:33)
[2020-08-04] VITALS: BP 147/95
[2020-08-04] MEDS: LORAZEPAM 0.5MG TABLET PO PRN (00:26)
[2020-08-04] MEDS: IPRATROPIUM/ALBUTEROL 0.5-3(2.5)MG/3ML NEB HHN SCH ×5 (00:44→16:25)
[2020-08-04 02:00] VITALS: BP 106/51
[2020-08-04 04:00] VITALS: BP 150/66
[2020-08-04] MEDS: BUDESONIDE 0.5MG/2ML NEB HHN SCH ×2 (04:49→08:38)
[2020-08-04] MEDS: METHYLPREDNISOLONE SOD SUCC 125 MG/2 ML VIAL IV SCH ×2 (05:29→14:00)
[2020-08-04] MEDS: PIPERACILLIN/TAZOBACTAM 2.25G in DEXTROSE 5% WATER 50ML IV SCH ×3 (05:29→17:05)
[2020-08-04 06:00] VITALS: BP 157/79
[2020-08-04] MEDS: FAMOTIDINE 20MG/2ML VIAL IV SCH (08:54)
[2020-08-04] MEDS: CARVEDILOL 3.125 MG TABLET PO SCH (08:55)
[2020-08-04] MEDS: APIXABAN 5 MG TABLET PO SCH ×2 (08:55→17:00)
[2020-08-04] MEDS ORDERED: MED4 MT (11:05)
[2020-08-05] MEDS ORDERED: FAMOTIDINE 20MG TABLET PO SCH (09:00)
== END 2020-08-04 18:15 | disposition home or self-care (01) | DRG 189 ==
LOC: ER 19:27 → 3WST 21:13 → ENRESERV 23:30
PROVIDERS: ADMIT Family Medicine Adult Medicine; ATTEND Family Medicine Adult Medicine
PROC: 5A09457 Assistance with Respiratory Ventilation, 24-96 Consecutive Hours, Continuous Positive Airway Pressure (ICD-10-PCS; principal; 2020-08-01)
DX: J96.20 Acute and chronic respiratory failure, unspecified whether with hypoxia or hypercapnia (principal); J44.1 Chronic obstructive pulmonary disease with (acute) exacerbation; N17.9 Acute kidney failure, unspecified; I13.0 Hypertensive heart and chronic kidney disease with heart failure and stage 1 through stage 4 chronic kidney disease, or unspecified chronic kidney disease; I42.9 Cardiomyopathy, unspecified; I50.22 Chronic systolic (congestive) heart failure; D64.9 Anemia, unspecified; E87.5 Hyperkalemia; I48.91 Unspecified atrial fibrillation; N18.9 Chronic kidney disease, unspecified; I48.0 Paroxysmal atrial fibrillation; K21.9 Gastro-esophageal reflux disease without esophagitis; F20.9 Schizophrenia, unspecified; F14.10 Cocaine abuse, uncomplicated; Z79.01 Long term (current) use of anticoagulants; Z87.891 Personal history of nicotine dependence; Z99.81 Dependence on supplemental oxygen; Z79.899 Other long term (current) drug therapy
CPT/HCPCS: 36415; 36600; 71045; 76770; 80048; 80053; 81003; 82375; 82805; 83605; 83880; 84484; 85025; 85027; 93005; 94640; 94644; 94660; 99291; J1956; J2543; J2930; J3490; J7030; J7060; J7626

== ENCOUNTER 2020-09-23 15:55 | Inpatient (IN) | payer MEDICARE, MEDICAID ==
[~2020-09-23] VITALS: Ht 165.1 cm; Wt 53.5 kg
[~2020-09-23 15:55] MED LIST changes: +MED4 MT
[2020-09-23] MEDS ORDERED: ONDANSETRON HCL 4MG/2ML INJ IV ONE (16:45)
[2020-09-23] MEDS ORDERED: SODIUM CHLORIDE 0.9% 1,000 ML IV ONE (16:45)
[2020-09-23] MEDS ORDERED: FAMOTIDINE 20MG/2ML VIAL IV ONE (16:45)
[2020-09-23 17:04] LABS: BASOPHILS % 0.6 % (0.0-2.0); HEMATOCRIT. 39.9 % (42.0-52.0); HEMOGLOBIN. 12.7 g/dL (14.0-18.0); LYMPHOCYTES % 13.8 % (20.0-50.0); MEAN CORPUSCULAR HEMOGLOBIN 28.3 pg (28.0-32.0); MEAN CORPUSCULAR VOLUME 89.2 fL (80.0-94.0); MEAN PLATELET VOLUME 9.9 fl (7.4-10.4); MONOCYTES % 11.3 % (2.0-8.0); NEUTROPHILS % 74.3 % (40.0-76.0); PLATELET 267 x1000/uL (130-400); RED BLOOD CELL COUNT 4.48 mill/uL (4.7-6.1); RED CELL DISTRIBUTION WIDTH 14.5 % (11.6-14.6)
[2020-09-23 17:13] LABS: CHLORIDE 104 mEq/L (98-107)
[2020-09-23 17:15] LABS: PROTHROMBIN TIME 10.4 sec (9.6-11.0)
[2020-09-23 21:57] LABS: CLARITY URINE CLEAR (CLEAR); COLOR URINE YELLOW (YELLOW); KETONES URINE 1+ (NEGATIVE); LEUKOCYTE ESTERASE URINE NEGATIVE (NEGATIVE); NITRITE URINE NEGATIVE (NEGATIVE); OCCULT BLOOD URINE NEGATIVE (NEGATIVE); PH URINE 5.5 (4.5-8.0); PROTEIN URINE 1+ (NEGATIVE); SPECIFIC GRAVITY URINE 1.048 (1.005-1.030); UROBILINOGEN URINE 0.2 E.U./dL (0.2-1.0)
[2020-09-23] MEDS ORDERED: IOHEXOL-300 100 ML BOTTLE ONE (22:36)
[2020-09-24 01:15] VITALS: BP 129/63
[2020-09-24 04:00] VITALS: BP 114/39
[2020-09-24] MEDS ORDERED: AMIO100T4 PO (06:17)
[2020-09-24] MEDS ORDERED: TAMS-11 PO (06:18)
[2020-09-24] MEDS ORDERED: LOSA25TA26 MT (06:18)
[2020-09-24 08:38] VITALS: BP 117/55
[2020-09-24] MEDS: PANTOPRAZOLE SODIUM 40 MG/VIAL IV SCH ×2 (09:21→11:30)
[2020-09-24 10:47] LABS: HEMATOCRIT 38.3 % (42.0-52.0); HEMOGLOBIN 12.1 g/dL (14.0-18.0); MEAN CORPUSCULAR HEMOGLOBIN 28.3 pg (28.0-32.0); MEAN CORPUSCULAR VOLUME 89.3 fL (80.0-94.0); PLATELET 254 x1000/uL (130-400); RED BLOOD CELL COUNT 4.29 mill/uL (4.7-6.1); RED CELL DISTRIBUTION WIDTH 14.4 % (11.6-14.6)
[2020-09-24 12:10] LABS: CHLORIDE 108 mEq/L (98-107)
[2020-09-24 12:21] LABS: TOTAL IRON BINDING CAPACITY 208 ug/dL (250-450)
[2020-09-24 12:22] VITALS: BP 120/41
[2020-09-24] MEDS: IPRATROPIUM/ALBUTEROL 0.5-3(2.5)MG/3ML NEB HHN SCH ×2 (14:38→21:08)
[2020-09-24 16:28] VITALS: BP 103/42
[2020-09-24 20:00] VITALS: BP 121/55
[2020-09-25] VITALS: BP 118/51
[2020-09-25] MEDS: IPRATROPIUM/ALBUTEROL 0.5-3(2.5)MG/3ML NEB HHN SCH ×4 (01:38→21:58)
[2020-09-25 04:00] VITALS: BP 104/53
[2020-09-25 07:26] LABS: BASOPHILS % 0.5 % (0.0-2.0); EOSINOPHILS % 0.1 % (0.0-5.0); HEMATOCRIT. 33.2 % (42.0-52.0); LYMPHOCYTES % 14.8 % (20.0-50.0); MEAN CORPUSCULAR HEMOGLOBIN 28.9 pg (28.0-32.0); MEAN CORPUSCULAR VOLUME 86.9 fL (80.0-94.0); MEAN PLATELET VOLUME 9.1 fl (7.4-10.4); MONOCYTES % 11.3 % (2.0-8.0); NEUTROPHILS % 73.3 % (40.0-76.0); PLATELET 242 x1000/uL (130-400); RED BLOOD CELL COUNT 3.82 mill/uL (4.7-6.1)
[2020-09-25 08:00] VITALS: BP 124/61
[2020-09-25] MEDS: PANTOPRAZOLE SODIUM 40 MG/VIAL IV SCH ×2 (09:00→09:46)
[2020-09-25 12:00] VITALS: BP 116/50
[2020-09-25 16:00] VITALS: BP 109/48
[2020-09-25 20:00] VITALS: BP 111/51
[2020-09-26] VITALS: BP 109/61
[2020-09-26 04:00] VITALS: BP 111/52
[2020-09-26] MEDS: IPRATROPIUM/ALBUTEROL 0.5-3(2.5)MG/3ML NEB HHN SCH ×3 (05:37→16:00)
[2020-09-26 08:00] VITALS: BP 108/53
[2020-09-26] MEDS: PANTOPRAZOLE SODIUM 40 MG/VIAL IV SCH (10:10)
[2020-09-26 12:00] VITALS: BP 112/64
[2020-09-26 16:00] VITALS: BP 115/57
[2020-09-26 17:06] LABS: BASOPHILS % 0.6 % (0.0-2.0); EOSINOPHILS % 0.1 % (0.0-5.0); HEMATOCRIT. 33.1 % (42.0-52.0); LYMPHOCYTES % 23.5 % (20.0-50.0); MEAN CORPUSCULAR HEMOGLOBIN 28.6 pg (28.0-32.0); MEAN CORPUSCULAR VOLUME 85.8 fL (80.0-94.0); MEAN PLATELET VOLUME 9.7 fl (7.4-10.4); MONOCYTES % 10.7 % (2.0-8.0); NEUTROPHILS % 65.1 % (40.0-76.0); PLATELET 219 x1000/uL (130-400); RED BLOOD CELL COUNT 3.86 mill/uL (4.7-6.1); RED CELL DISTRIBUTION WIDTH 13.7 % (11.6-14.6)
[2020-09-26 20:50] VITALS: BP 116/65
[2020-09-26] MEDS: ASCORBIC ACID 250 MG TABLET PO SCH (21:19)
[2020-09-27] VITALS: BP 120/47
[2020-09-27 04:00] VITALS: BP 132/65
[2020-09-27 06:40] LABS: HEPATITIS B SURFACE ANTIGEN NEGATIVE
[2020-09-27 08:00] VITALS: BP 138/63
[2020-09-27] MEDS: IPRATROPIUM/ALBUTEROL 0.5-3(2.5)MG/3ML NEB HHN SCH ×3 (08:50→20:08)
[2020-09-27] MEDS: PANTOPRAZOLE SODIUM 40 MG/VIAL IV SCH ×2 (09:00→09:39)
[2020-09-27] MEDS: FERROUS SULFATE 325MG TABLET PO SCH ×3 (09:39→18:19)
[2020-09-27] MEDS: ASCORBIC ACID 250 MG TABLET PO SCH ×2 (09:42→21:05)
[2020-09-27 12:00] VITALS: BP 127/71
[2020-09-27 16:00] VITALS: BP 100/50
[2020-09-27] MEDS: APIXABAN 5 MG TABLET PO SCH (18:19)
[2020-09-27 20:00] VITALS: BP 108/49
[2020-09-27] MEDS ORDERED: DEXT 5%/0.45% NACL 500ML 1,000 ML IV SCH (21:00)
[2020-09-28] VITALS: BP 109/53
[2020-09-28] MEDS ORDERED: LORAZEPAM 1MG TABLET PO NR
[2020-09-28] MEDS: DEXT 5%/0.45% NACL 1000ML 1,000 ML IV SCH ×2 (00:18→17:18)
[2020-09-28] MEDS: IPRATROPIUM/ALBUTEROL 0.5-3(2.5)MG/3ML NEB HHN SCH ×4 (01:00→21:33)
[2020-09-28 04:00] VITALS: BP 103/50
[2020-09-28 08:00] VITALS: BP 114/78
[2020-09-28] MEDS: APIXABAN 5 MG TABLET PO SCH ×2 (08:51→17:18)
[2020-09-28] MEDS: ASCORBIC ACID 250 MG TABLET PO SCH ×2 (08:51→21:26)
[2020-09-28] MEDS: FERROUS SULFATE 325MG TABLET PO SCH ×3 (08:51→17:18)
[2020-09-28] MEDS: PANTOPRAZOLE SODIUM 40 MG/VIAL IV SCH (08:51)
[2020-09-28] MEDS: ACETAMINOPHEN 325MG TABLET PO PRN (10:48)
[2020-09-28 12:00] VITALS: BP 99/47
[2020-09-28 16:00] VITALS: BP 103/41
[2020-09-28 16:00] LABS: HEMATOCRIT. 30.3 % (42.0-52.0); HEMOGLOBIN. 9.8 g/dL (14.0-18.0); MEAN CORPUSCULAR HEMOGLOBIN 27.8 pg (28.0-32.0); MEAN CORPUSCULAR VOLUME 86.2 fL (80.0-94.0); MEAN PLATELET VOLUME 9.2 fl (7.4-10.4); PLATELET 267 x1000/uL (130-400); RED BLOOD CELL COUNT 3.51 mill/uL (4.7-6.1); RED CELL DISTRIBUTION WIDTH 13.8 % (11.6-14.6)
[2020-09-28 16:23] LABS: PLATELET ESTIMATE NORMAL
[2020-09-28] MEDS: PIPERACILLIN/TAZOBACTAM 3.375 G in DEXTROSE 5% WATER 50 ML IV SCH ×2 (17:18→21:26)
[2020-09-29] VITALS: BP 121/59
[2020-09-29] MEDS: IPRATROPIUM/ALBUTEROL 0.5-3(2.5)MG/3ML NEB HHN SCH ×4 (01:29→21:22)
[2020-09-29 04:00] VITALS: BP 117/43
[2020-09-29] MEDS: DEXT 5%/0.45% NACL 1000ML 1,000 ML IV SCH ×2 (05:28→16:28)
[2020-09-29] MEDS: PIPERACILLIN/TAZOBACTAM 3.375 G in DEXTROSE 5% WATER 50 ML IV SCH ×3 (05:28→21:32)
[2020-09-29 05:52] LABS: HEMATOCRIT. 31.3 % (42.0-52.0); MEAN CORPUSCULAR HEMOGLOBIN 27.8 pg (28.0-32.0); MEAN CORPUSCULAR VOLUME 86.9 fL (80.0-94.0); MEAN PLATELET VOLUME 9.6 fl (7.4-10.4); PLATELET 299 x1000/uL (130-400); RED CELL DISTRIBUTION WIDTH 14.2 % (11.6-14.6)
[2020-09-29 08:00] VITALS: BP 134/64
[2020-09-29] MEDS: FAMOTIDINE 20MG TABLET PO SCH (08:43)
[2020-09-29] MEDS: ASCORBIC ACID 250 MG TABLET PO SCH ×2 (08:43→21:00)
[2020-09-29] MEDS: APIXABAN 5 MG TABLET PO SCH ×2 (08:44→16:27)
[2020-09-29] MEDS: FERROUS SULFATE 325MG TABLET PO SCH ×3 (08:44→16:46)
[2020-09-29 12:00] VITALS: BP_SYST 107; BP_SYST 133; BP_DIAS 48; BP_DIAS 68
[2020-09-29 16:00] VITALS: BP 117/56
[2020-09-29 18:12] LABS: PLATELET ESTIMATE NORMAL
[2020-09-29 20:00] VITALS: BP 108/50
[2020-09-30] VITALS: BP 114/52
[2020-09-30] MEDS: IPRATROPIUM/ALBUTEROL 0.5-3(2.5)MG/3ML NEB HHN SCH ×4 (01:56→21:41)
[2020-09-30 04:00] VITALS: BP 124/63
[2020-09-30 04:07] LABS: OVA & PARASITE EXAM Final report (.)
[2020-09-30] MEDS: PIPERACILLIN/TAZOBACTAM 3.375 G in DEXTROSE 5% WATER 50 ML IV SCH ×3 (05:22→21:50)
[2020-09-30 07:32] LABS: CHLORIDE 107 mEq/L (98-107)
[2020-09-30 07:40] LABS: HEMATOCRIT. 30.6 % (42.0-52.0); MEAN CORPUSCULAR HEMOGLOBIN 28.5 pg (28.0-32.0); MEAN CORPUSCULAR VOLUME 87.3 fL (80.0-94.0); MEAN PLATELET VOLUME 9.3 fl (7.4-10.4); PLATELET 319 x1000/uL (130-400); RED CELL DISTRIBUTION WIDTH 13.9 % (11.6-14.6)
[2020-09-30 08:00] VITALS: BP 138/58
[2020-09-30] MEDS: DEXT 5%/0.45% NACL 1000ML 1,000 ML IV SCH ×2 (08:46→19:10)
[2020-09-30] MEDS: FERROUS SULFATE 325MG TABLET PO SCH ×3 (08:47→18:30)
[2020-09-30] MEDS: ASCORBIC ACID 250 MG TABLET PO SCH ×2 (08:47→20:12)
[2020-09-30] MEDS: APIXABAN 5 MG TABLET PO SCH ×2 (08:47→18:30)
[2020-09-30] MEDS: FAMOTIDINE 20MG TABLET PO SCH (08:47)
[2020-09-30 12:00] VITALS: BP 117/61
[2020-09-30 13:38] LABS: PLATELET ESTIMATE NORMAL
[2020-09-30 16:00] VITALS: BP 118/55
[2020-09-30 20:00] VITALS: BP 106/51
[2020-10-01] VITALS (7 sets, daily range): BP systolic 96–136; BP diastolic 52–63
[2020-10-01] MEDS: IPRATROPIUM/ALBUTEROL 0.5-3(2.5)MG/3ML NEB HHN SCH ×4 (01:32→20:26)
[2020-10-01] MEDS: PIPERACILLIN/TAZOBACTAM 3.375 G in DEXTROSE 5% WATER 50 ML IV SCH (06:00)
[2020-10-01 07:58] LABS: HEMATOCRIT. 30.9 % (42.0-52.0); MEAN CORPUSCULAR HEMOGLOBIN 28.1 pg (28.0-32.0); MEAN CORPUSCULAR VOLUME 86.6 fL (80.0-94.0); MEAN PLATELET VOLUME 9.2 fl (7.4-10.4); PLATELET 372 x1000/uL (130-400); RED BLOOD CELL COUNT 3.57 mill/uL (4.7-6.1); RED CELL DISTRIBUTION WIDTH 14.4 % (11.6-14.6)
[2020-10-01 08:11] LABS: CHLORIDE 108 mEq/L (98-107)
[2020-10-01] MEDS: ASCORBIC ACID 250 MG TABLET PO SCH ×2 (08:12→20:59)
[2020-10-01] MEDS: FERROUS SULFATE 325MG TABLET PO SCH ×3 (08:12→17:39)
[2020-10-01] MEDS: ACETAMINOPHEN 325MG TABLET PO PRN (08:12)
[2020-10-01] MEDS: APIXABAN 5 MG TABLET PO SCH ×2 (08:12→17:40)
[2020-10-01] MEDS: FAMOTIDINE 20MG TABLET PO SCH (08:12)
[2020-10-01] MEDS: DEXT 5%/0.45% NACL 1000ML 1,000 ML IV SCH ×2 (08:13→19:42)
[2020-10-01 10:39] LABS: PLATELET ESTIMATE NORMAL
[2020-10-01] MEDS ORDERED: LEVOFLOXACIN 500MG TABLET PO NR (11:00)
[2020-10-01] MEDS: AMOXICILLIN/POTASSIUM CLAVULANATE 500/125MG TAB PO SCH ×2 (15:54→20:59)
[2020-10-01 18:54] LABS: ETHANOL BLOOD < 10 mg/dL
[2020-10-01 19:02] LABS: T4 FREE 1.92 ng/dL (0.76-1.46)
[2020-10-01 19:13] LABS: FOLIC ACID (FOLATE) SERUM 13.8 ng/mL (>5.38)
[2020-10-02] VITALS: BP 110/60
[2020-10-02] MEDS: IPRATROPIUM/ALBUTEROL 0.5-3(2.5)MG/3ML NEB HHN SCH ×5 (01:35→23:56)
[2020-10-02 04:00] VITALS: BP 135/64
[2020-10-02] MEDS: AMOXICILLIN/POTASSIUM CLAVULANATE 500/125MG TAB PO SCH ×3 (05:18→22:00)
[2020-10-02 08:00] VITALS: BP 139/64
[2020-10-02] MEDS: APIXABAN 5 MG TABLET PO SCH ×2 (10:02→17:58)
[2020-10-02] MEDS: FAMOTIDINE 20MG TABLET PO SCH (10:03)
[2020-10-02] MEDS: FERROUS SULFATE 325MG TABLET PO SCH ×3 (10:03→17:59)
[2020-10-02] MEDS: ASCORBIC ACID 250 MG TABLET PO SCH ×2 (10:03→21:00)
[2020-10-02] MEDS ORDERED: METHYLPREDNISOLONE SOD SUCC 40 MG/ML VIAL IV SCH ×2 (11:00)
[2020-10-02] MEDS ORDERED: LEVOFLOXACIN 250MG TABLET PO SCH (11:00)
[2020-10-02 12:00] VITALS: BP 135/67
[2020-10-02] MEDS: DEXT 5%/0.45% NACL 1000ML 1,000 ML IV SCH (12:14)
[2020-10-02 16:00] VITALS: BP 122/68
[2020-10-02 16:06] LABS: BG BASE EXCESS 2.9 mmol/L (-2.0-2.0); BG CARBOXYHEMOGLOBIN 0.3 % (0.5-1.5); BG DEOXYHEMOGLOBIN 1.8 % (0.0-5.0); BG FRACTION INSPIRED OXYGEN 100; BG HCO3 ACT 27.6 mmol/L (22.0-26.0); BG METHEMOGLOBIN 0.3 % (0.0-1.5); BG OXYGEN SATURATION 98.2 % (92.0-98.5); BG OXYHEMOGLOBIN 97.6 % (94.0-97.0); BG PH 7.425 (7.350-7.450); BG PO2 126.2 mmHg (75.0-100.0); BG SAMPLE SITE RIGHT BRACHIAL; BG TOTAL HEMOGLOBIN 9.9 g/dL (12.0-18.0); BG VENT MODE MASK - BIPAP
[2020-10-02] MEDS: LORAZEPAM 2MG/ML CPJ IV PRN (17:58)
[2020-10-02 20:00] VITALS: BP 103/63
[2020-10-02] MEDS: METHYLPREDNISOLONE SOD SUCC 40 MG/ML VIAL IV SCH (20:29)
[2020-10-03] VITALS: BP 132/55
[2020-10-03 04:00] VITALS: BP 124/62
[2020-10-03] MEDS: IPRATROPIUM/ALBUTEROL 0.5-3(2.5)MG/3ML NEB HHN SCH ×2 (04:43→20:31)
[2020-10-03] MEDS: DEXT 5%/0.45% NACL 1000ML 1,000 ML IV SCH ×2 (05:16→14:08)
[2020-10-03] MEDS: METHYLPREDNISOLONE SOD SUCC 40 MG/ML VIAL IV SCH ×3 (05:20→20:50)
[2020-10-03] MEDS: AMOXICILLIN/POTASSIUM CLAVULANATE 500/125MG TAB PO SCH ×3 (05:23→20:49)
[2020-10-03] MEDS ORDERED: LORAZEPAM 2MG/ML CPJ IM ONE (08:00)
[2020-10-03 08:46] LABS: CHLORIDE 107 mEq/L (98-107)
[2020-10-03] MEDS: FAMOTIDINE 20MG TABLET PO SCH (09:30)
[2020-10-03] MEDS: ASCORBIC ACID 250 MG TABLET PO SCH ×2 (09:30→20:50)
[2020-10-03] MEDS: FERROUS SULFATE 325MG TABLET PO SCH ×3 (09:30→18:43)
[2020-10-03] MEDS: APIXABAN 5 MG TABLET PO SCH ×2 (09:30→17:00)
[2020-10-03 15:00] VITALS: BP 140/85
[2020-10-03 16:00] VITALS: BP 128/82
[2020-10-03 20:00] VITALS: BP 126/68
[2020-10-04] VITALS (10 sets, daily range): BP systolic 105–138; BP diastolic 54–75
[2020-10-04] MEDS: IPRATROPIUM/ALBUTEROL 0.5-3(2.5)MG/3ML NEB HHN SCH ×6 (00:16→20:46)
[2020-10-04] MEDS: DEXT 5%/0.45% NACL 1000ML 1,000 ML IV SCH ×2 (02:34→17:58)
[2020-10-04] MEDS: METHYLPREDNISOLONE SOD SUCC 40 MG/ML VIAL IV SCH ×3 (05:35→20:59)
[2020-10-04] MEDS: AMOXICILLIN/POTASSIUM CLAVULANATE 500/125MG TAB PO SCH ×3 (05:35→20:59)
[2020-10-04] MEDS: ASCORBIC ACID 250 MG TABLET PO SCH ×2 (09:38→20:42)
[2020-10-04] MEDS: FAMOTIDINE 20MG TABLET PO SCH (09:39)
[2020-10-04] MEDS: FERROUS SULFATE 325MG TABLET PO SCH ×3 (09:39→17:56)
[2020-10-04] MEDS: APIXABAN 5 MG TABLET PO SCH ×2 (09:39→17:56)
[2020-10-04] MEDS: LORAZEPAM 2MG/ML CPJ IV PRN ×2 (09:45→20:13)
[2020-10-04 12:06] LABS: BG BASE EXCESS 0.9 mmol/L (-2.0-2.0); BG CARBOXYHEMOGLOBIN 0.3 % (0.5-1.5); BG DEOXYHEMOGLOBIN 1.2 % (0.0-5.0); BG FRACTION INSPIRED OXYGEN 70; BG HCO3 ACT 25.4 mmol/L (22.0-26.0); BG METHEMOGLOBIN 0.3 % (0.0-1.5); BG OXYGEN SATURATION 98.8 % (92.0-98.5); BG OXYHEMOGLOBIN 98.2 % (94.0-97.0); BG PCO2 40.1 mmHg (35.0-45.0); BG PO2 186.2 mmHg (75.0-100.0); BG SAMPLE SITE RIGHT RADIAL; BG TOTAL HEMOGLOBIN 9.4 g/dL (12.0-18.0); BG VENT MODE MASK - BIPAP
[2020-10-05] VITALS (10 sets, daily range): BP systolic 118–150; BP diastolic 57–88
[2020-10-05] MEDS: IPRATROPIUM/ALBUTEROL 0.5-3(2.5)MG/3ML NEB HHN SCH ×6 (00:48→20:31)
[2020-10-05] MEDS: DEXT 5%/0.45% NACL 1000ML 1,000 ML IV SCH (05:19)
[2020-10-05] MEDS: AMOXICILLIN/POTASSIUM CLAVULANATE 500/125MG TAB PO SCH ×3 (05:19→22:40)
[2020-10-05] MEDS: METHYLPREDNISOLONE SOD SUCC 40 MG/ML VIAL IV SCH ×3 (05:21→22:40)
[2020-10-05 08:37] LABS: BG BASE EXCESS 2.4 mmol/L (-2.0-2.0); BG CARBOXYHEMOGLOBIN 0.1 % (0.5-1.5); BG DEOXYHEMOGLOBIN 2.1 % (0.0-5.0); BG FRACTION INSPIRED OXYGEN 40; BG HCO3 ACT 26.5 mmol/L (22.0-26.0); BG METHEMOGLOBIN 0.3 % (0.0-1.5); BG OXYGEN SATURATION 97.9 % (92.0-98.5); BG OXYHEMOGLOBIN 97.5 % (94.0-97.0); BG PCO2 39.1 mmHg (35.0-45.0); BG PH 7.449 (7.350-7.450); BG PO2 108.2 mmHg (75.0-100.0); BG SAMPLE SITE RIGHT BRACHIAL; BG TOTAL HEMOGLOBIN 9.1 g/dL (12.0-18.0); BG TOTAL RESPIRATORY RATE 28 b/min; BG VENT MODE MASK - BIPAP
[2020-10-05] MEDS: APIXABAN 5 MG TABLET PO SCH ×2 (08:43→17:52)
[2020-10-05] MEDS: FAMOTIDINE 20MG TABLET PO SCH (08:43)
[2020-10-05] MEDS: ASCORBIC ACID 250 MG TABLET PO SCH ×2 (08:43→22:40)
[2020-10-05] MEDS: FERROUS SULFATE 325MG TABLET PO SCH ×3 (08:43→17:52)
[2020-10-06] VITALS (9 sets, daily range): BP systolic 118–151; BP diastolic 64–89
[2020-10-06] MEDS: IPRATROPIUM/ALBUTEROL 0.5-3(2.5)MG/3ML NEB HHN SCH ×5 (00:29→16:00)
[2020-10-06] MEDS: DEXT 5%/0.45% NACL 1000ML 1,000 ML IV SCH ×3 (04:07→21:30)
[2020-10-06] MEDS: LORAZEPAM 2MG/ML CPJ IV PRN (04:18)
[2020-10-06] MEDS: METHYLPREDNISOLONE SOD SUCC 40 MG/ML VIAL IV SCH ×3 (05:25→21:30)
[2020-10-06] MEDS: AMOXICILLIN/POTASSIUM CLAVULANATE 500/125MG TAB PO SCH ×2 (05:25→14:30)
[2020-10-06] MEDS: FERROUS SULFATE 325MG TABLET PO SCH ×3 (08:29→17:40)
[2020-10-06] MEDS: ASCORBIC ACID 250 MG TABLET PO SCH ×2 (09:00→21:30)
[2020-10-06] MEDS: FAMOTIDINE 20MG TABLET PO SCH (10:27)
[2020-10-06] MEDS: APIXABAN 5 MG TABLET PO SCH ×2 (10:27→17:40)
[2020-10-06] MEDS ORDERED: LIDOCAINE HCL 1% 20ML VIAL (Pyxis) INJ ONE (13:42)
[2020-10-07] VITALS: BP 153/82
[2020-10-07 04:00] VITALS: BP 118/76
[2020-10-07] MEDS: METHYLPREDNISOLONE SOD SUCC 40 MG/ML VIAL IV SCH (05:01)
[2020-10-07] MEDS: ACETAMINOPHEN 325MG TABLET PO PRN (05:01)
[2020-10-07 07:04] LABS: HEMATOCRIT. 32.7 % (42.0-52.0); HEMOGLOBIN. 10.1 g/dL (14.0-18.0); MEAN CORPUSCULAR HEMOGLOBIN 27.7 pg (28.0-32.0); MEAN CORPUSCULAR VOLUME 89.1 fL (80.0-94.0); MEAN PLATELET VOLUME 9.6 fl (7.4-10.4); PLATELET 474 x1000/uL (130-400); RED BLOOD CELL COUNT 3.67 mill/uL (4.7-6.1); RED CELL DISTRIBUTION WIDTH 14.2 % (11.6-14.6)
[2020-10-07 07:12] LABS: CHLORIDE 105 mEq/L (98-107)
[2020-10-07 07:19] LABS: C REACTIVE PROTEIN QUANT 3.2 mg/L (0.0-3.0)
[2020-10-07] MEDS: FERROUS SULFATE 325MG TABLET PO SCH ×3 (07:57→17:46)
[2020-10-07 08:00] VITALS: BP 113/71
[2020-10-07] MEDS: APIXABAN 5 MG TABLET PO SCH ×2 (08:02→17:48)
[2020-10-07] MEDS: FAMOTIDINE 20MG TABLET PO SCH (08:02)
[2020-10-07] MEDS: ASCORBIC ACID 250 MG TABLET PO SCH ×2 (08:02→20:58)
[2020-10-07 12:00] VITALS: BP 157/76
[2020-10-07] MEDS: DEXT 5%/0.45% NACL 1000ML 1,000 ML IV SCH (13:01)
[2020-10-07] MEDS: GUAIFENESIN 600MG ER TABLET PO SCH ×2 (13:01→20:58)
[2020-10-07 16:30] VITALS: BP 129/64
[2020-10-07] MEDS: PREDNISONE 20MG TABLET PO SCH (17:46)
[2020-10-07 19:44] LABS: PLATELET ESTIMATE INCREASED
[2020-10-07 20:00] VITALS: BP 159/75
[2020-10-07] MEDS: IPRATROPIUM BROMIDE (0.02%) 0.5MG/2.5ML NEB HHN SCH (20:15)
[2020-10-07] MEDS: LORAZEPAM 2MG/ML CPJ IM PRN (20:58)
[2020-10-08] VITALS: BP 99/56
[2020-10-08] MEDS: IPRATROPIUM BROMIDE (0.02%) 0.5MG/2.5ML NEB HHN SCH ×6 (01:05→23:48)
[2020-10-08] MEDS: DEXT 5%/0.45% NACL 1000ML 1,000 ML IV SCH ×2 (03:54→13:03)
[2020-10-08 04:00] VITALS: BP 137/71
[2020-10-08 08:00] VITALS: BP 132/75
[2020-10-08] MEDS: ASCORBIC ACID 250 MG TABLET PO SCH ×2 (08:45→21:25)
[2020-10-08] MEDS: FAMOTIDINE 20MG TABLET PO SCH (08:45)
[2020-10-08] MEDS: APIXABAN 5 MG TABLET PO SCH ×2 (08:45→16:18)
[2020-10-08] MEDS: FERROUS SULFATE 325MG TABLET PO SCH ×3 (08:46→16:18)
[2020-10-08] MEDS: GUAIFENESIN 600MG ER TABLET PO SCH ×2 (08:46→21:25)
[2020-10-08] MEDS: PREDNISONE 20MG TABLET PO SCH ×2 (08:46→16:18)
[2020-10-08 12:00] VITALS: BP 147/73
[2020-10-08 16:00] VITALS: BP 125/59
[2020-10-08] MEDS: IPRATROPIUM/ALBUTEROL 0.5-3(2.5)MG/3ML NEB HHN PRN ×2 (16:23→20:11)
[2020-10-08 20:00] VITALS: BP 152/79
[2020-10-09] VITALS: BP 145/83
[2020-10-09] MEDS: LORAZEPAM 2MG/ML CPJ IM PRN (01:32)
[2020-10-09] MEDS: IPRATROPIUM BROMIDE (0.02%) 0.5MG/2.5ML NEB HHN SCH ×4 (03:48→15:32)
[2020-10-09 04:00] VITALS: BP 144/72
[2020-10-09] MEDS: FERROUS SULFATE 325MG TABLET PO SCH ×4 (07:10→17:10)
[2020-10-09 08:00] VITALS: BP 151/78
[2020-10-09] MEDS: ASCORBIC ACID 250 MG TABLET PO SCH ×2 (09:00→09:34)
[2020-10-09] MEDS: FAMOTIDINE 20MG TABLET PO SCH ×2 (09:00→09:35)
[2020-10-09] MEDS: APIXABAN 5 MG TABLET PO SCH ×3 (09:00→17:00)
[2020-10-09] MEDS: PREDNISONE 20MG TABLET PO SCH ×2 (09:34→17:00)
[2020-10-09] MEDS: GUAIFENESIN 600MG ER TABLET PO SCH (09:34)
[2020-10-09] MEDS: DEXT 5%/0.45% NACL 1000ML 1,000 ML IV SCH (09:35)
[2020-10-09 12:00] VITALS: BP 113/73
[2020-10-09] MEDS: IPRATROPIUM/ALBUTEROL 0.5-3(2.5)MG/3ML NEB HHN PRN (12:37)
[2020-10-09 16:00] VITALS: BP 139/66
[2020-10-09 16:37] VITALS: BP 139/66
== END 2020-10-09 19:15 | DRG 177 ==
LOC: ER 15:55 → MICUSO 18:27 → EDBEDREQTM 18:29 → EDBEDREQ 18:29 → 8WST 23:39 → 5EST 10-03 14:39 → 7WST 10-06 09:15 → 7EST 10-07 08:32
PROVIDERS: ADMIT Family Medicine Adult Medicine; ATTEND Family Medicine Adult Medicine
PROC: 5A09457 Assistance with Respiratory Ventilation, 24-96 Consecutive Hours, Continuous Positive Airway Pressure (ICD-10-PCS; principal; 2020-10-02)
PROC: 02HV33Z Insertion of Infusion Device into Superior Vena Cava, Percutaneous Approach (ICD-10-PCS; 2020-10-02)
PROC: B548ZZA Ultrasonography of Superior Vena Cava, Guidance (ICD-10-PCS; 2020-10-02)
PROC: 02HV33Z Insertion of Infusion Device into Superior Vena Cava, Percutaneous Approach (ICD-10-PCS; 2020-10-06)
PROC: B548ZZA Ultrasonography of Superior Vena Cava, Guidance (ICD-10-PCS; 2020-10-06)
DX: U07.1 COVID-19 (principal); J96.21 Acute and chronic respiratory failure with hypoxia; G92 Toxic encephalopathy; J96.22 Acute and chronic respiratory failure with hypercapnia; N17.9 Acute kidney failure, unspecified; I42.9 Cardiomyopathy, unspecified; I50.22 Chronic systolic (congestive) heart failure; I13.0 Hypertensive heart and chronic kidney disease with heart failure and stage 1 through stage 4 chronic kidney disease, or unspecified chronic kidney disease; J44.1 Chronic obstructive pulmonary disease with (acute) exacerbation; A08.39 Other viral enteritis; K21.9 Gastro-esophageal reflux disease without esophagitis; N18.9 Chronic kidney disease, unspecified; F20.9 Schizophrenia, unspecified; K40.90 Unilateral inguinal hernia, without obstruction or gangrene, not specified as recurrent; D63.8 Anemia in other chronic diseases classified elsewhere; E86.0 Dehydration; I48.0 Paroxysmal atrial fibrillation; E87.5 Hyperkalemia; K82.8 Other specified diseases of gallbladder; N28.1 Cyst of kidney, acquired; R74.01 Elevation of levels of liver transaminase levels; R49.0 Dysphonia; R53.81 Other malaise; R26.9 Unspecified abnormalities of gait and mobility; R13.10 Dysphagia, unspecified; Z99.81 Dependence on supplemental oxygen; Z79.84 Long term (current) use of oral hypoglycemic drugs; Z79.899 Other long term (current) drug therapy; Z79.01 Long term (current) use of anticoagulants; F19.11 Other psychoactive substance abuse, in remission; F03.90 Unspecified dementia, unspecified severity, without behavioral disturbance, psychotic disturbance, mood disturbance, and anxiety
CPT/HCPCS: 36415; 36600; 71045; 74018; 74177; 76700; 76937; 80048; 80053; 80076; 80320; 81003; 82140; 82270; 82375; 82607; 82746; 82805; 83036; 83540; 83550; 84145; 84439; 84443; 84481; 85025; 85027; 86140; 86705; 86709; 86803; 87015; 87045; 87177; 87209; 87340; 87426; 87427; 87449; 87493; 89055; 92523; 92610; 93005; 93970; 94640; 94660; 97162; 97164; 97165; 99285; C1725; C1769; C1893; C9113; J2060; J2405; J2543; J2920; J3490; J7030; J7040; J7060; J7512; Q9967; U0003; U0005; G0480